=== PATIENT | male | born 1945 | race Caucasian/White ===

== ENCOUNTER → 2018-07-03 06:12 | Outpatient (CLI) | payer MEDICARE, OTHER, SELFPAY ==
--- NOTE | 2018-07-03 | DI.MRI.S_ITS ---
PROCEDURE: MR LUMBAR SPINE WO CON INDICATIONS: BACK PAIN TECHNIQUE: Noncontrast sagittal T1 spin echo and T2 fast echo, sagittal STIR, axial T1 and T2 fast spin echo through the lumbar spine. In cases with scoliosis, additional coronal T2 fast spin echo may be performed. COMPARISON: [facility], [place], XR LUMBAR SPINE FLEXION EXTENSION, 06/30/2018, 9:06. FINDINGS: Image quality: Excellent. Alignment and Curvature: There is scoliosis. Mild resistance of L2 on L3 and L3 on L4. Bone Marrow: Marrow is of normal overall signal. No acute vertebral body compression fractures. Spinal Cord: Conus medullaris terminates at the L1 level. Visualized cord demonstrates normal signal and size. Paraspinous Soft Tissues: No paravertebral masses. T12-L1: Preserved disc height. Mild disc desiccation. There is diffuse posterior disc bulge and disc osteophyte complex. There is left posterior paramedian disc extrusion measuring 5 x 9 x 9 mm. The central canal is mildly narrowed. Mild narrowing of the left lateral recess. No foraminal stenosis. L1-L2: Preserved disc height. Mild disc desiccation. There is diffuse posterior disc bulge and disc osteophyte complex. There is left posterior paramedian disc extrusion measuring 4 x 7 x 9 mm. Mild bilateral facet arthropathy and hypertrophy of ligamentum flavum. The central canal is mildly narrowed. Mild left foraminal stenosis. L2-L3: Mild loss of disc height and disc desiccation. There is diffuse posterior disc bulge and disc osteophyte complex. A small posterior central annular fissure is present. Mild bilateral facet arthropathy and hypertrophy of ligamentum flavum. The central canal is mildly narrowed. Mild bilateral foraminal stenosis. L3-L4: Moderate loss of disc height and disc desiccation. There is diffuse posterior disc bulge and disc osteophyte complex. A small posterior right paramedian annular fissure is present. Mild bilateral facet arthropathy and moderate hypertrophy of ligamentum flavum. The central canal is moderately narrowed. Moderate bilateral foraminal stenosis. L4-L5: Severe loss of disc height and disc desiccation. There is diffuse posterior disc bulge and disc osteophyte complex. Severe right and moderate left facet arthropathy. Moderate bilateral hypertrophy of ligamentum flavum. The central canal is moderately narrowed. Moderate bilateral foraminal stenosis. L5-S1: Laminectomy and posterior fusion. Preserved disc height. Moderate disc desiccation. There is diffuse posterior disc bulge and disc osteophyte complex. Moderate bilateral facet arthropathy. The central canal is patent. No foraminal stenosis. IMPRESSION: 1. Multilevel degenerative and postsurgical changes as described. 2. Multilevel central canal stenosis, moderate at L3-L4 and L4-L5. 3. Multilevel foraminal stenosis as described. Dictated by: Ravi Monterroso M.D. on 07/03/2018 at 7:58 Transcribed by: MAXIMINO on 07/03/2018 at 19:25 Approved by: Ravi Monterroso M.D. on 07/04/2018 at 19:02
== END ==
PROVIDERS: PCP Internal Medicine; Visit Provider Orthopaedic Surgery
DX: M47.816 Spondylosis without myelopathy or radiculopathy, lumbar region (principal); M47.817 Spondylosis without myelopathy or radiculopathy, lumbosacral region; M48.061 Spinal stenosis, lumbar region without neurogenic claudication; M54.9 Dorsalgia, unspecified; Z98.1 Arthrodesis status
CPT/HCPCS: 72148

== ENCOUNTER → 2018-07-10 14:33 | Outpatient (CLI) | payer MEDICARE, OTHER, SELFPAY ==
[2018-07-10 16:15] LABS: Alanine Aminotransferase 46 IU/L (21-72); Albumin 3.8 g/dL (3.5-5.0); Albumin Globulin Ratio 1.6 (1.0-2.8); Alkaline Phosphatase 78 U/L (38-126); Aspartate Aminotransferase 34 IU/L (17-59); Bilirubin Total 0.3 mg/dL (0.2-1.3); Blood Urea Nitrogen 16 mg/dL (9-20); Calcium 9.3 mg/dL (8.4-10.2); Carbon Dioxide 28 mmol/L (22-32); Chloride 97 mmol/L (98-107); Estimated Glomerular Filt Rate > 60.0 mL/min (>60); Globulin 2.4 g/dL (1.7-4.1); Glucose 102 mg/dL (80-110); HEMOLYSIS < 15 (0-50); Potassium 3.9 mmol/L (3.4-5.1); Sodium 135 mmol/L (137-145); Total Protein 6.2 g/dL (6.3-8.2)
[2018-07-10 16:46] LABS: Prostate Specific Antigen Scrn 2.56 ng/mL (0.1-4.0)
== END ==
PROVIDERS: PCP Internal Medicine; Visit Provider Internal Medicine
DX: E78.5 Hyperlipidemia, unspecified (principal); I10 Essential (primary) hypertension; Z12.5 Encounter for screening for malignant neoplasm of prostate
CPT/HCPCS: 36415; 80053; G0103

== ENCOUNTER → 2019-06-02 15:13 | Outpatient (CLI) | payer MEDICARE, OTHER, SELFPAY | PROVIDERS: PCP Internal Medicine; Visit Provider Physician Assistant | DX: T14.8XXA Other injury of unspecified body region, initial encounter (principal) | CPT/HCPCS: 87070; 87075; 87077; 87147; 87186; 87205 ==

== ENCOUNTER → 2019-07-17 08:59 | Outpatient (CLI) | payer MEDICARE, OTHER, SELFPAY ==
[2019-07-17 09:59] LABS: Alanine Aminotransferase 19 IU/L (<50); Albumin 3.8 g/dL (3.5-5.0); Albumin Globulin Ratio 1.4 (1.0-2.8); Alkaline Phosphatase 74 U/L (38-126); Aspartate Aminotransferase 30 IU/L (17-59); Bilirubin Total 0.5 mg/dL (0.2-1.3); Blood Urea Nitrogen 28 mg/dL (9-20); Calcium 9.4 mg/dL (8.4-10.2); Carbon Dioxide 30 mmol/L (22-32); Chloride 102 mmol/L (98-107); Cholesterol 324 mg/dL (140-199); Estimated Glomerular Filt Rate > 60.0 mL/min (>60); Globulin 2.7 g/dL (1.7-4.1); Glucose 106 mg/dL (80-110); HDL Cholesterol 68 mg/dL (40-60); HEMOLYSIS < 15 (0-50); LDL Cholesterol Calculated 245 mg/dL (<100); Potassium 3.9 mmol/L (3.4-5.1); Sodium 140 mmol/L (137-145); Total Protein 6.5 g/dL (6.3-8.2); Triglycerides 56 mg/dL (35-150)
== END ==
PROVIDERS: PCP Internal Medicine; Referring Provider Internal Medicine; Visit Provider Internal Medicine
DX: E78.5 Hyperlipidemia, unspecified (principal); I10 Essential (primary) hypertension
CPT/HCPCS: 36415; 80053; 80061

== ENCOUNTER → 2020-02-02 07:45 | Outpatient (CLI) | payer MEDICARE, OTHER, SELFPAY ==
[2020-02-02 09:12] LABS: Alanine Aminotransferase 20 IU/L (<50); Albumin 3.9 g/dL (3.5-5.0); Albumin Globulin Ratio 1.8 (1.0-2.8); Alkaline Phosphatase 69 U/L (38-126); Aspartate Aminotransferase 31 IU/L (17-59); BUN Creatinine Ratio 27.2 (6-22); Bilirubin Total 0.6 mg/dL (0.2-1.3); Blood Urea Nitrogen 25 mg/dL (9-20); Calcium 9.5 mg/dL (8.4-10.2); Carbon Dioxide 33 mmol/L (22-32); Chloride 102 mmol/L (98-107); Cholesterol 181 mg/dL (140-199); Estimated Glomerular Filt Rate > 60.0 mL/min (>60); Globulin 2.2 g/dL (1.7-4.1); Glucose 83 mg/dL (80-110); HDL Cholesterol 65 mg/dL (40-60); HEMOLYSIS < 15 (0-50); LDL Cholesterol Calculated 101 mg/dL (<100); Potassium 4.2 mmol/L (3.4-5.1); Sodium 137 mmol/L (137-145); Total Protein 6.1 g/dL (6.3-8.2); Triglycerides 73 mg/dL (35-150)
[2020-02-02 09:26] LABS: Free T4, Direct Thyroxine 1.04 ng/dL (0.78-2.19)
[2020-02-02 09:40] LABS: Thyroid Stimulating Hormone 2.74 uIU/mL (0.47-4.68)
== END ==
PROVIDERS: PCP Internal Medicine; Referring Provider Internal Medicine; Visit Provider Internal Medicine
DX: E78.5 Hyperlipidemia, unspecified (principal); G20 Parkinson's disease; I10 Essential (primary) hypertension
CPT/HCPCS: 36415; 80053; 80061; 84439; 84443

== ENCOUNTER → 2020-07-25 10:09 | Outpatient (CLI) | payer MEDICARE, OTHER, SELFPAY ==
[2020-07-25 11:38] LABS: Cholesterol 199 mg/dL (140-199); HDL Cholesterol 79 mg/dL (40-60); LDL Cholesterol Calculated 105 mg/dL (<100); Triglycerides 77 mg/dL (35-150)
== END ==
PROVIDERS: PCP Internal Medicine; Referring Provider Internal Medicine; Visit Provider Internal Medicine
DX: E78.2 Mixed hyperlipidemia (principal); I10 Essential (primary) hypertension
CPT/HCPCS: 36415; 80061

== ENCOUNTER → 2020-08-13 10:54 | Outpatient (CLI) | payer MEDICARE, OTHER, SELFPAY ==
--- NOTE | 2020-08-13 | DI.MRI.S_ITS ---
PROCEDURE: MR SHOULDER RT WO CON INDICATIONS: Unspecified disorder of synovium and tendon, right TECHNIQUE: Noncontrast oblique coronal T2 fast spin echo with fat saturation, oblique sagittal T1 spin echo and T2 fast spin echo with fat saturation, axial T1 spin echo and T2 fast spin echo with fat saturation through the shoulder. COMPARISON: [facility], MR, SHOULDER WITHOUT CONTRAST, 03/25/2017, 12:48. FINDINGS: Image quality: Excellent. Rotator cuff: Postsurgical changes from prior rotator cuff tendon repair is again seen Tendinosis and moderate grade articular and bursal surface partial thickness tear involving distal supraspinatus at its insertion on the humeral head is seen extending to musculotendinous junction with focal full-thickness perforation involving most anterior fibers of distal supraspinatus at its insertion on the humeral head and up to 1.7 cm medial retraction of torn tendon fibers and fluid-filled gap measures 1 cm in AP dimension. Distal infraspinatus tendinosis and low to moderate grade articular surface partial-thickness tear at its insertion on the humeral head is seen. Distal subscapularis tendinosis and low-grade intrasubstance partial-thickness tear is also noted. Sagittal images demonstrate mild to moderate supraspinatus muscle atrophy. Bones and bursae: Postsurgical changes are noted in anterior superior humeral head with susceptibility artifacts. No bone marrow contusions or fractures. There is moderate acromioclavicular joint osteoarthritis with prominent downward osteophyte formation depressing the musculotendinous junction of supraspinatus. Mild to moderate glenohumeral joint osteoarthritic changes also seen. Slight superior migration of humeral head in relation to glenoid is seen. There is moderate amount of joint effusion and subacromial subdeltoid bursal fluid. Capsule and soft tissues: There is signal abnormality and contour irregularity involving superior anterior labrum at 12 to 2 o'clock position suggestive of superior anterior labral tear. Glenohumeral ligaments are intact. The long head of the biceps tendinosis is seen. The rotator interval appears normal, without fibrosis. The coracohumeral ligament is normal in thickness. IMPRESSION: 1. Prior rotator cuff tendon repair. Moderate acromioclavicular joint osteoarthritis and mild to moderate glenohumeral joint osteoarthritis. Moderate amount of joint fluid and subacromial subdeltoid bursal fluid. No gross marrow edema. 2. Tendinosis and moderate grade articular and bursal surface partial thickness tear involving distal supraspinatus extending to musculotendinous junction with focal full-thickness tear involving most anterior fibers of distal supraspinatus at its insertion on the humeral head with up to 1.7 cm medial retraction of torn tendon fibers and fluid-filled gap measures 1 cm in AP dimension. Distal infraspinatus tendinosis and low to moderate grade articular surface partial-thickness tear. Tendinosis and low-grade intrasubstance partial-thickness tear involving distal subscapularis. Mild to moderate supraspinatus muscle atrophy. 3. Suggestion of superior anterior labral tear at 12 to 2 o'clock position. 4. Proximal intra-articular portion of long head of biceps tendinosis. Dictated by: Checo Lopez M.D. on 08/15/2020 at 8:35 Approved by: Checo Lopez M.D. on 08/15/2020 at 8:57
== END ==
PROVIDERS: PCP Internal Medicine; Referring Provider Orthopaedic Surgery; Visit Provider Orthopaedic Surgery
DX: M19.011 Primary osteoarthritis, right shoulder (principal); M75.111 Incomplete rotator cuff tear or rupture of right shoulder, not specified as traumatic
CPT/HCPCS: 73221

== ENCOUNTER → 2020-12-27 08:39 | Outpatient (CLI) | payer MEDICARE, OTHER, SELFPAY ==
[2020-12-27 09:27] LABS: Alanine Aminotransferase 10 IU/L (<50); Albumin 3.8 g/dL (3.5-5.0); Albumin Globulin Ratio 1.5 (1.0-2.8); Alkaline Phosphatase 63 U/L (38-126); Aspartate Aminotransferase 27 IU/L (17-59); BUN Creatinine Ratio 34.1 (6-22); Bilirubin Total 0.5 mg/dL (0.2-1.3); Blood Urea Nitrogen 30 mg/dL (9-20); Calcium 9.5 mg/dL (8.4-10.2); Carbon Dioxide 29 mmol/L (22-32); Chloride 107 mmol/L (98-107); Estimated Glomerular Filt Rate > 60.0 mL/min (>60); Globulin 2.5 g/dL (1.7-4.1); Glucose 103 mg/dL (80-110); HEMOLYSIS < 15 (0-50); Potassium 3.6 mmol/L (3.4-5.1); Sodium 141 mmol/L (137-145); Total Protein 6.3 g/dL (6.3-8.2)
== END ==
PROVIDERS: PCP Internal Medicine; Referring Provider Internal Medicine; Visit Provider Internal Medicine
DX: E78.2 Mixed hyperlipidemia (principal); I10 Essential (primary) hypertension
CPT/HCPCS: 36415; 80053

== ENCOUNTER → 2021-08-07 10:22 | Outpatient (CLI) | payer MEDICARE, OTHER, SELFPAY ==
[2021-08-07 12:25] LABS: Alanine Aminotransferase 14 IU/L (<50); Albumin 4.3 g/dL (3.5-5.0); Albumin Globulin Ratio 1.8 (1.0-2.8); Alkaline Phosphatase 62 U/L (38-126); Aspartate Aminotransferase 29 IU/L (17-59); BUN Creatinine Ratio 24.7 (6-22); Bilirubin Total 0.6 mg/dL (0.2-1.3); Blood Urea Nitrogen 22 mg/dL (9-20); Calcium 9.2 mg/dL (8.4-10.2); Carbon Dioxide 31 mmol/L (22-32); Chloride 103 mmol/L (98-107); Cholesterol 191 mg/dL (140-199); Estimated Glomerular Filt Rate > 60.0 mL/min (>60); Globulin 2.4 g/dL (1.7-4.1); Glucose 92 mg/dL (80-110); HDL Cholesterol 67 mg/dL (40-60); HEMOLYSIS < 15 (0-50); LDL Cholesterol Calculated 110 mg/dL (<100); Potassium 3.4 mmol/L (3.4-5.1); Sodium 141 mmol/L (137-145); Total Protein 6.7 g/dL (6.3-8.2); Triglycerides 72 mg/dL (35-150)
== END ==
PROVIDERS: PCP Internal Medicine; Referring Provider Internal Medicine; Visit Provider Internal Medicine
DX: E78.2 Mixed hyperlipidemia (principal); I10 Essential (primary) hypertension
CPT/HCPCS: 36415; 80053; 80061

== ENCOUNTER 2021-09-28 13:00 | Outpatient (RCR) | payer MEDICARE, OTHER, SELFPAY ==
--- NOTE | 2021-09-07 09:39 | PT.OIE ---
Current Diagnoses Parkinson's disease (09/07/21) Past Medical History (Last Reviewed 01/12/21 @ 08:21 by JIM Harris) Erectile dysfunction (11/11/12) History of renal calculi (04/10/11) Hyperlipidemia Hypertension Parkinsonism Past Surgical History (Last Reviewed 01/12/21 @ 08:21 by JIM Harris) Status post rotator cuff repair (04/26/17) Visit Care Team Role Provider Type Kike Washburn MD Family Provider Physician Primary Care Provider Specialty: Internal Medicine Address: [address] [place] [address], [address], [address] Email: [email or web address] Gissel Dominguez MD Attending Provider Non-Staff Referring Provider Specialty: Neurology Address: [address] [place] [address], [id number] Email: Physical Therapy Initial Evaluation PT-OP-A Visit Information Start: 09/06/21 16:03 Freq: Status: Active Protocol: Document 09/07/21 07:30 AMB (Rec: 09/07/21 07:52 AMB [id number]) Out-Patient Physical Therapy Visit Information Visit Information Visit Type Initial Evaluation Visit Start Time 07:30 Visit Stop Time 08:15 Total Visit Minutes 45 Visit Number 1 PT-OP-B Current Condition Start: 09/06/21 16:03 Freq: Status: Active Protocol: Document 09/07/21 07:30 AMB (Rec: 09/07/21 07:52 AMB [id number]) Current Condition History of Current Condition Onset Date 3-4 years ago Current Complaints Parkinsons History of Current Condition Used to walk around [facility] and [place], but currently feels like he can only walk 100 yards before legs get heavy. Feels stutter stepping does catch himself on the wall, but does report having a couple falls a month. Feels like falling forward when going to sit down in a chair. Has noticed changes with his handwriting. Rolling over in bed is challenging and painful in the low back. Has been using heat and ice. Taking a backwards step can be challenging. Lives in a two story home with his , doesn't use lower level. 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 Prior Treatments and Tests History of spine fusion- L45 Treatment Goals Patient/Caregiver Goals Balance, less pain with bed mobility Prior Functional Status Baseline Function- ADL's Independent Baseline Function- Mobility Independent Current Functional Impairments (Reported) Functional Limitations- ADL's Limited bed mobility (pain), handwriting, buttoning, donning/doffing shoes Functional Limitations- Mobility/Gait Limited long distance walking, falls in the home, furniture walks, Personal Factors Other Personal Factors That May Effect R eye reduced vision, reports Therapy/Recovery reduced depth perception, history of lumbar fusion PT-OP-D Balance Start: 09/06/21 16:03 Freq: Status: Active Protocol: Document 09/07/21 07:30 AMB (Rec: 09/08/21 09:39 AMB [id number]) Balance Tests Other Other Balance Tests Performed NBOS: good NBOS eyes closed: good PT-OP-E Functional Tests Start: 09/06/21 16:03 Freq: Status: Active Protocol: Document 09/07/21 07:30 AMB (Rec: 09/08/21 08:56 AMB [id number]) Functional Tests Five Times Sit to Stand Test Score 7 Comments poor eccentric control PT-OP-G Mobility & Gait Start: 09/06/21 16:03 Freq: Status: Active Protocol: Document 09/07/21 07:30 AMB (Rec: 09/08/21 08:56 AMB [id number]) OP Mobility Evaluation Bed Mobility Rolling cued punching- pt is able to roll independently, but with difficulty Supine to and from Sit requires UE support OP Gait Assessment Comments Gait Comments Once Bhavesh starts walking he can walk with good step length , needs cues for arm swing and heel/toe, but is able to change gait with cues. Tends to have festinating gait pattern when getting close to chair/bed, changing direction, was able to step over hurdles without festination when concentrating. Stair Climbing Evaluation Devices Stair Climbing Assistive Devices Left Railing,Right Railing Technique/Endurance Stair Climbing Direction Ascend and Descend Stair Climbing Technique Step Over Step Number of Steps Climbed 4 Stair Climbing Set # Repetitions (reps) 2 PT-OP-M Strength Start: 09/06/21 16:03 Freq: Status: Active Protocol: Document 09/07/21 07:30 AMB (Rec: 09/08/21 08:56 AMB [id number]) Hip Strength Hip Manual Muscle Testing Right Flexion (L2) 4 Good Extension (S1) 4 Good Abduction 4 Good Left Flexion (L2) 4 Good Extension (S1) 4 Good Abduction 4 Good Knee Strength Knee Manual Muscle Testing Right Flexion (S2) 5 Normal Extension (L3) 5 Normal Left Flexion (S2) 5 Normal Extension (L3) 5 Normal Ankle/Foot Strength Ankle and Foot Manual Muscle Testing Right Dorsiflexion (L4) 4 Good Left Dorsiflexion (L4) 4 Good PT-OP-T Assessment and Plan Start: 09/06/21 16:03 Freq: Status: Active Protocol: Document 09/07/21 07:30 AMB (Rec: 09/08/21 09:38 AMB [id number]) Physical Therapy Assessment Rehab Potential Rehabilitation Potential Good Evaluation Complexity Number of Personal Factors/Comorbidities 1-2 Number of Body Systems Impaired 4 or More Clinical Presentation at Evaluation Stable Impairments Impairments Balance,Functional Mobility, Gait,Pain,ROM,Strength Goals Three Impairment HEP Short Term Goal (STG) Bhavesh will be independent with a HEP to promote balance/gait/ reduce back pain. STG Duration 4 weeks Two Impairment Bed mobility Short Term Goal (STG) Bhavesh will roll over in bed without back pain. STG Duration 4 weeks One Impairment Gait Short Term Goal (STG) Bhavesh will walk for 6 minutes over smooth terrain while maintaining good step length and arm swing. STG Duration 4 weeks Target Trimmer Goal (LTG) Bhavesh will ambulate without AD over uneven terrain (grass/ gravel) without LOB. LTG Duration 8 weeks Assessment Summary Assessment Bhavesh attends physical therapy with PD and a history of back pain. He reports a significant fall history, but does not use an AD. During evaluation his MMT was WNL ( checked due to lumbar pathology history and feeling of leaden legs), but he did have festinating gait especially with transfers, common with PD once he got moving his gait was improved, but he did need cues for good amplitude, avoiding a shuffling gait and armswing. He would benefit from PT to improve his gait, fine motor activity, and transfer safety, as well as to decrease back pain with bed mobility. Physical Therapy Plan Frequency and Duration Frequency of Treatment 2x/Week Duration of Treatment 8 weeks Plan of Care Start Date 09/07/21 Plan of Care End Date 11/02/21 Therapeutic Interventions Therapeutic Interventions Balance Training,Gait Training ,Home Exercise Program,Joint Mobilizations,Manual Therapy, Neuromuscular Re-education, Patient/Caregiver Education, Self-Care/Home Management, Therapeutic Activities, Therapeutic Exercises Next Visit Focus/Plan Next Note Type Treatment Note Next Visit Plan HEP for low back ROM in bed to help with pain with bed mobility, then progress gait working olena on transitions-- walking up to chair and then stand to sit. . . walking around objects, turning while maintaining good amplitude of gait.
--- NOTE | 2021-09-07 09:40 | PT.OPPOC ---
Physical, Occupational & Speech Therapy At [facility] Current Diagnoses Parkinson's disease (09/07/21) Visit Care Team Role Provider Type Kike Washburn MD Family Provider Physician Primary Care Provider Specialty: Internal Medicine Address: [address] [place] [address], [address], [address] Email: [email or web address] Gissel Dominguez MD Attending Provider Non-Staff Referring Provider Specialty: Neurology Address: [address] [place], [address] Email: Plan Of Care PT-OP-T Assessment and Plan Start: 09/06/21 16:03 Freq: Status: Active Protocol: Document 09/07/21 07:30 AMB (Rec: 09/08/21 09:38 AMB [id number]) Physical Therapy Assessment Rehab Potential Rehabilitation Potential Good Evaluation Complexity Number of Personal Factors/Comorbidities 1-2 Number of Body Systems Impaired 4 or More Clinical Presentation at Evaluation Stable Impairments Impairments Balance,Functional Mobility, Gait,Pain,ROM,Strength Goals Three Impairment HEP Short Term Goal (STG) Bhavesh will be independent with a HEP to promote balance/gait/ reduce back pain. STG Duration 4 weeks Two Impairment Bed mobility Short Term Goal (STG) Bhavesh will roll over in bed without back pain. STG Duration 4 weeks One Impairment Gait Short Term Goal (STG) Bhavesh will walk for 6 minutes over smooth terrain while maintaining good step length and arm swing. STG Duration 4 weeks Jail Goal (LTG) Bhavesh will ambulate without AD over uneven terrain (grass/ gravel) without LOB. LTG Duration 8 weeks Assessment Summary Assessment Bhavesh attends physical therapy with PD and a history of back pain. He reports a significant fall history, but does not use an AD. During evaluation his MMT was WNL ( checked due to lumbar pathology history and feeling of leaden legs), but he did have festinating gait especially with transfers, common with PD once he got moving his gait was improved, but he did need cues for good amplitude, avoiding a shuffling gait and armswing. He would benefit from PT to improve his gait, fine motor activity, and transfer safety, as well as to decrease back pain with bed mobility. Physical Therapy Plan Frequency and Duration Frequency of Treatment 2x/Week Duration of Treatment 8 weeks Plan of Care Start Date 09/07/21 Plan of Care End Date 11/02/21 Therapeutic Interventions Therapeutic Interventions Balance Training,Gait Training ,Home Exercise Program,Joint Mobilizations,Manual Therapy, Neuromuscular Re-education, Patient/Caregiver Education, Self-Care/Home Management, Therapeutic Activities, Therapeutic Exercises Next Visit Focus/Plan Next Note Type Treatment Note Next Visit Plan HEP for low back ROM in bed to help with pain with bed mobility, then progress gait working olena on transitions-- walking up to chair and then stand to sit. . . walking around objects, turning while maintaining good amplitude of gait. Plan of Care Dates Plan of Care Start Date 09/07/21 Plan of Care End Date 11/02/21 Electronically Signed by: Bianca Rose, PT 09/08/21 0990 Please Sign and Return: I have reviewed this Plan of Care and certify that the skilled therapy services above are required to meet the patient?s needs. Physician Signature Date Printed Name and Credentials Clinical Instructor Signature Printed Name and Credentials
--- NOTE | 2021-09-13 18:01 | PT.OTN ---
Current Diagnoses Parkinson's disease (09/13/21) Physical Therapy Treatment Note PT-OP-A Visit Information Start: 09/06/21 16:03 Freq: Status: Active Protocol: Document 09/13/21 13:42 MA (Rec: 09/13/21 14:32 MA [id number]) Out-Patient Physical Therapy Visit Information Visit Information Visit Type Treatment Note Visit Start Time 13:45 Visit Stop Time 14:30 Total Visit Minutes 45 Visit Number 2 Number of BODY DIE MAKER Visits 1 PT-OP-B Current Condition Start: 09/06/21 16:03 Freq: Status: Active Protocol: Document 09/07/21 07:30 AMB (Rec: 09/07/21 07:52 AMB [id number]) Current Condition History of Current Condition Onset Date 3-4 years ago Current Complaints Parkinsons History of Current Condition Used to walk around [employer] and [place], but currently feels like he can only walk 100 yards before legs get heavy. Feels stutter stepping does catch himself on the wall, but does report having a couple falls a month. Feels like falling forward when going to sit down in a chair. Has noticed changes with his handwriting. Rolling over in bed is challenging and painful in the low back. Has been using heat and ice. Taking a backwards step can be challenging. Lives in a two story home with his , doesn't use lower level. 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 Prior Treatments and Tests History of spine fusion- L45 Treatment Goals Patient/Caregiver Goals Balance, less pain with bed mobility Prior Functional Status Baseline Function- ADL's Independent Baseline Function- Mobility Independent Current Functional Impairments (Reported) Functional Limitations- ADL's Limited bed mobility (pain), handwriting, buttoning, donning/doffing shoes Functional Limitations- Mobility/Gait Limited long distance walking, falls in the home, furniture walks, Personal Factors Other Personal Factors That May Effect R eye reduced vision, reports Therapy/Recovery reduced depth perception, history of lumbar fusion PT-OP-C Subjective Start: 09/06/21 16:03 Freq: Status: Active Protocol: Document 09/13/21 13:42 MA (Rec: 09/13/21 14:32 MA [id number]) OP-PT Subjective Patient Comments Patient Comments Pt had chiropractic appt this morning so his back is a little looser today. PT-OP-D Balance Start: 09/06/21 16:03 Freq: Status: Active Protocol: Document 09/07/21 07:30 AMB (Rec: 09/08/21 09:39 AMB [id number]) Balance Tests Other Other Balance Tests Performed NBOS: good NBOS eyes closed: good PT-OP-E Functional Tests Start: 09/06/21 16:03 Freq: Status: Active Protocol: Document 09/07/21 07:30 AMB (Rec: 09/08/21 08:56 AMB [id number]) Functional Tests Five Times Sit to Stand Test Score 7 Comments poor eccentric control PT-OP-G Mobility & Gait Start: 09/06/21 16:03 Freq: Status: Active Protocol: Document 09/07/21 07:30 AMB (Rec: 09/08/21 08:56 AMB [id number]) OP Mobility Evaluation Bed Mobility Rolling cued punching- pt is able to roll independently, but with difficulty Supine to and from Sit requires UE support OP Gait Assessment Comments Gait Comments Once Bhavesh starts walking he can walk with good step length , needs cues for arm swing and heel/toe, but is able to change gait with cues. Tends to have festinating gait pattern when getting close to chair/bed, changing direction, was able to step over hurdles without festination when concentrating. Stair Climbing Evaluation Devices Stair Climbing Assistive Devices Left Railing,Right Railing Technique/Endurance Stair Climbing Direction Ascend and Descend Stair Climbing Technique Step Over Step Number of Steps Climbed 4 Stair Climbing Set # Repetitions (reps) 2 PT-OP-M Strength Start: 09/06/21 16:03 Freq: Status: Active Protocol: Document 09/07/21 07:30 AMB (Rec: 09/08/21 08:56 AMB [id number]) Hip Strength Hip Manual Muscle Testing Right Flexion (L2) 4 Good Extension (S1) 4 Good Abduction 4 Good Left Flexion (L2) 4 Good Extension (S1) 4 Good Abduction 4 Good Knee Strength Knee Manual Muscle Testing Right Flexion (S2) 5 Normal Extension (L3) 5 Normal Left Flexion (S2) 5 Normal Extension (L3) 5 Normal Ankle/Foot Strength Ankle and Foot Manual Muscle Testing Right Dorsiflexion (L4) 4 Good Left Dorsiflexion (L4) 4 Good PT-OP-Q Treatments Start: 09/06/21 16:03 Freq: Status: Active Protocol: Document 09/13/21 13:42 MA (Rec: 09/13/21 14:32 MA [id number]) Therapeutic Exercises Supine Exercises PPT Supine Exercise Name posterior pelvic tilt Side bilateral Reps/Minutes 10x5 SH Comments added to HEP LTR Side bilateral Reps/Minutes [id number] Comments Added to HEP -pain free range Sidelying Exercises Open Book Side bilateral Reps/Minutes 6x10 SH Comments added to HEP for improving posture Standing Exercises Marches Equipment Used rail for balance Reps/Minutes 2x20 Comments added to HEP Therapeutic Activity Therapeutic Activity Transitions Comments Transitioning between 2 chairs placed at 90 degree angle. Pt has no trouble with this today but occassionally has difficulty controlling descent into chair. Gait Training Gait Activity Walking Level of Assistance CGA Surface smooth Distance/Duration 3x100 ft Treatment Focus Big arm swings, increasing step height and length Comments Frequent cues for posture Self-Care/Home Management Treatment Education Other Education Added to HEP: PPT, LTR, open book, standing marches PT-OP-T Assessment and Plan Start: 09/06/21 16:03 Freq: Status: Active Protocol: Document 09/13/21 13:42 MA (Rec: 09/13/21 14:32 MA [id number]) Physical Therapy Assessment Goals Three Impairment HEP Short Term Goal (STG) Bhavesh will be independent with a HEP to promote balance/gait/ reduce back pain. STG Duration 4 weeks Two Impairment Bed mobility Short Term Goal (STG) Bhavesh will roll over in bed without back pain. STG Duration 4 weeks One Impairment Gait Short Term Goal (STG) Bhavesh will walk for 6 minutes over smooth terrain while maintaining good step length and arm swing. STG Duration 4 weeks [facility] Goal (LTG) Bhavesh will ambulate without AD over uneven terrain (grass/ gravel) without LOB. LTG Duration 8 weeks Assessment Summary Assessment Started pt with gentle supine stretches for lumbar and thoracic spine before practicing rolling for bed mobility. Pt usually has increased back pain trying to get up out of bed in the morning but had no pain rolling to SL and sitting up this session. Bhavesh walks with decreased arm swings, step height, step length, and a NBOS. Worked on increasing step height and arm swings this session. Added to HEP- standing marches, supine pelvic tilt, lower trunk rotation, and open book exercise. Pt feels a stronger pec stretch R>L during open book exercise. Physical Therapy Plan Frequency and Duration Frequency of Treatment 2x/Week Duration of Treatment 8 weeks Plan of Care Start Date 09/07/21 Plan of Care End Date 11/02/21 Therapeutic Interventions Therapeutic Interventions Balance Training,Gait Training ,Home Exercise Program,Joint Mobilizations,Manual Therapy, Neuromuscular Re-education, Patient/Caregiver Education, Self-Care/Home Management, Therapeutic Activities, Therapeutic Exercises Next Visit Focus/Plan Next Note Type Treatment Note Next Visit Plan review HEP (PPT, LTR, open book, standing marches) and assess bed mobility since starting HEP. Continue progressing gait and transitions-- walking up to chair and then stand to sit. . . walking around objects, turning while maintaining good amplitude of gait.
--- NOTE | 2021-09-15 13:50 | PT.OTN ---
Current Diagnoses Parkinson's disease (09/15/21) Physical Therapy Treatment Note PT-OP-A Visit Information Start: 09/06/21 16:03 Freq: Status: Active Protocol: Document 09/15/21 08:23 AMB (Rec: 09/15/21 09:01 AMB [id number]) Out-Patient Physical Therapy Visit Information Visit Information Visit Type Treatment Note Visit Start Time 08:15 Visit Stop Time 09:00 Total Visit Minutes 45 Visit Number 3 PT-OP-B Current Condition Start: 09/06/21 16:03 Freq: Status: Active Protocol: Document 09/07/21 07:30 AMB (Rec: 09/07/21 07:52 AMB [id number]) Current Condition History of Current Condition Onset Date 3-4 years ago Current Complaints Parkinsons History of Current Condition Used to walk around [employer] and [employer], but currently feels like he can only walk 100 yards before legs get heavy. Feels stutter stepping does catch himself on the wall, but does report having a couple falls a month. Feels like falling forward when going to sit down in a chair. Has noticed changes with his handwriting. Rolling over in bed is challenging and painful in the low back. Has been using heat and ice. Taking a backwards step can be challenging. Lives in a two story home with his , doesn't use lower level. 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 Prior Treatments and Tests History of spine fusion- L45 Treatment Goals Patient/Caregiver Goals Balance, less pain with bed mobility Prior Functional Status Baseline Function- ADL's Independent Baseline Function- Mobility Independent Current Functional Impairments (Reported) Functional Limitations- ADL's Limited bed mobility (pain), handwriting, buttoning, donning/doffing shoes Functional Limitations- Mobility/Gait Limited long distance walking, falls in the home, furniture walks, Personal Factors Other Personal Factors That May Effect R eye reduced vision, reports Therapy/Recovery reduced depth perception, history of lumbar fusion PT-OP-C Subjective Start: 09/06/21 16:03 Freq: Status: Active Protocol: Document 09/15/21 13:36 AMB (Rec: 09/15/21 13:48 AMB [id number]) OP-PT Subjective Patient Comments Patient Comments Bhavesh reports he did is exercises this morning after getting up, felt ok after being up for a while. Interested in returning to walking with his , but agrees only flat surfaces for right now. PT-OP-D Balance Start: 09/06/21 16:03 Freq: Status: Active Protocol: Document 09/07/21 07:30 AMB (Rec: 09/08/21 09:39 AMB [id number]) Balance Tests Other Other Balance Tests Performed NBOS: good NBOS eyes closed: good PT-OP-E Functional Tests Start: 09/06/21 16:03 Freq: Status: Active Protocol: Document 09/07/21 07:30 AMB (Rec: 09/08/21 08:56 AMB [id number]) Functional Tests Five Times Sit to Stand Test Score 7 Comments poor eccentric control PT-OP-G Mobility & Gait Start: 09/06/21 16:03 Freq: Status: Active Protocol: Document 09/07/21 07:30 AMB (Rec: 09/08/21 08:56 AMB [id number]) OP Mobility Evaluation Bed Mobility Rolling cued punching- pt is able to roll independently, but with difficulty Supine to and from Sit requires UE support OP Gait Assessment Comments Gait Comments Once Bhavesh starts walking he can walk with good step length , needs cues for arm swing and heel/toe, but is able to change gait with cues. Tends to have festinating gait pattern when getting close to chair/bed, changing direction, was able to step over hurdles without festination when concentrating. Stair Climbing Evaluation Devices Stair Climbing Assistive Devices Left Railing,Right Railing Technique/Endurance Stair Climbing Direction Ascend and Descend Stair Climbing Technique Step Over Step Number of Steps Climbed 4 Stair Climbing Set # Repetitions (reps) 2 PT-OP-M Strength Start: 09/06/21 16:03 Freq: Status: Active Protocol: Document 09/07/21 07:30 AMB (Rec: 09/08/21 08:56 AMB [id number]) Hip Strength Hip Manual Muscle Testing Right Flexion (L2) 4 Good Extension (S1) 4 Good Abduction 4 Good Left Flexion (L2) 4 Good Extension (S1) 4 Good Abduction 4 Good Knee Strength Knee Manual Muscle Testing Right Flexion (S2) 5 Normal Extension (L3) 5 Normal Left Flexion (S2) 5 Normal Extension (L3) 5 Normal Ankle/Foot Strength Ankle and Foot Manual Muscle Testing Right Dorsiflexion (L4) 4 Good Left Dorsiflexion (L4) 4 Good PT-OP-Q Treatments Start: 09/06/21 16:03 Freq: Status: Active Protocol: Document 09/15/21 13:36 AMB (Rec: 09/15/21 13:48 AMB [id number]) Therapeutic Exercises Supine Exercises LTR Side bilateral Reps/Minutes [id number] Comments Reviewed HEP Standing Exercises sit to abigail Reps/Minutes 10 Comments cued control of descent Marches Equipment Used rail for balance Reps/Minutes 2x20 Comments Reviewed HEP Gait Training Gait Activity hurdles Level of Assistance CGA Comments difficult with vision impairment, but cued for lifting feet Walking Description smooth Device Used none Level of Assistance SBA Distance/Duration 200' Comments cued heel strike/toe push off, trunk rotation/arm swing Neuro Re-Education Treatment Balance Activities foam Comments static balance eyes open good- eyes closed increased sway but able to maintain Other Activities rock and reach Reps/Duration 10 ea side Comments cued big arm swing PT-OP-T Assessment and Plan Start: 09/06/21 16:03 Freq: Status: Active Protocol: Document 09/15/21 08:23 AMB (Rec: 09/15/21 09:01 AMB [id number]) Physical Therapy Assessment Goals Three Impairment HEP Short Term Goal (STG) Bhavesh will be independent with a HEP to promote balance/gait/ reduce back pain. STG Duration 4 weeks Two Impairment Bed mobility Short Term Goal (STG) Bhavesh will roll over in bed without back pain. STG Duration 4 weeks One Impairment Gait Short Term Goal (STG) Bhavesh will walk for 6 minutes over smooth terrain while maintaining good step length and arm swing. STG Duration 4 weeks [employer] Goal (LTG) Bhavesh will ambulate without AD over uneven terrain (grass/ gravel) without LOB. LTG Duration 8 weeks Assessment Summary Assessment Provided education today on safe return to community ambulation for exercise, not to push duration yet, but get in the habit of going on walks with where there are benches. Bhavesh's vision was a limiting factor with stepping over hurdles, so cued good step length and avoiding shuffling gait pattern. Bhavesh had a more difficult time with dual tasking- slowed gait with cognitive task. Physical Therapy Plan Next Visit Focus/Plan Next Note Type Treatment Note Next Visit Plan review HEP (PPT, LTR, open book, standing marches, rock and reach) and assess bed mobility since starting HEP. Continue progressing gait and transitions-- walking up to chair and then stand to sit. . . walking around objects, turning while maintaining good amplitude of gait.
--- NOTE | 2021-09-18 12:57 | PT.OTN ---
Current Diagnoses Parkinson's disease (09/18/21) Physical Therapy Treatment Note PT-OP-A Visit Information Start: 09/06/21 16:03 Freq: Status: Active Protocol: Document 09/18/21 11:58 MA (Rec: 09/18/21 12:57 MA [id number]) Out-Patient Physical Therapy Visit Information Visit Information Visit Type Treatment Note Visit Start Time 12:00 Visit Stop Time 12:45 Total Visit Minutes 45 Visit Number 4 Number of FINE GRADER Visits 1 PT-OP-B Current Condition Start: 09/06/21 16:03 Freq: Status: Active Protocol: Document 09/07/21 07:30 AMB (Rec: 09/07/21 07:52 AMB [id number]) Current Condition History of Current Condition Onset Date 3-4 years ago Current Complaints Parkinsons History of Current Condition Used to walk around [employer] and [place], but currently feels like he can only walk 100 yards before legs get heavy. Feels stutter stepping does catch himself on the wall, but does report having a couple falls a month. Feels like falling forward when going to sit down in a chair. Has noticed changes with his handwriting. Rolling over in bed is challenging and painful in the low back. Has been using heat and ice. Taking a backwards step can be challenging. Lives in a two story home with his , doesn't use lower level. Currently working parts analyst as a contracts administrator, but thinking of fully retiring. Prior Treatments and Tests History of spine fusion- L45 Treatment Goals Patient/Caregiver Goals Balance, less pain with bed mobility Prior Functional Status Baseline Function- ADL's Independent Baseline Function- Mobility Independent Current Functional Impairments (Reported) Functional Limitations- ADL's Limited bed mobility (pain), handwriting, buttoning, donning/doffing shoes Functional Limitations- Mobility/Gait Limited long distance walking, falls in the home, furniture walks, Personal Factors Other Personal Factors That May Effect R eye reduced vision, reports Therapy/Recovery reduced depth perception, history of lumbar fusion PT-OP-C Subjective Start: 09/06/21 16:03 Freq: Status: Active Protocol: Document 09/18/21 11:58 MA (Rec: 09/18/21 12:57 MA [id number]) OP-PT Subjective Patient Comments Patient Comments Pt feels his back is already feeling better with his exercises. He would like to drop down to 1x/wk so he has more time between appointments to work on his HEP and see how his back feels. PT-OP-D Balance Start: 09/06/21 16:03 Freq: Status: Active Protocol: Document 09/07/21 07:30 AMB (Rec: 09/08/21 09:39 AMB [id number]) Balance Tests Other Other Balance Tests Performed NBOS: good NBOS eyes closed: good PT-OP-E Functional Tests Start: 09/06/21 16:03 Freq: Status: Active Protocol: Document 09/07/21 07:30 AMB (Rec: 09/08/21 08:56 AMB [id number]) Functional Tests Five Times Sit to Stand Test Score 7 Comments poor eccentric control PT-OP-G Mobility & Gait Start: 09/06/21 16:03 Freq: Status: Active Protocol: Document 09/07/21 07:30 AMB (Rec: 09/08/21 08:56 AMB [id number]) OP Mobility Evaluation Bed Mobility Rolling cued punching- pt is able to roll independently, but with difficulty Supine to and from Sit requires UE support OP Gait Assessment Comments Gait Comments Once Bhavesh starts walking he can walk with good step length , needs cues for arm swing and heel/toe, but is able to change gait with cues. Tends to have festinating gait pattern when getting close to chair/bed, changing direction, was able to step over hurdles without festination when concentrating. Stair Climbing Evaluation Devices Stair Climbing Assistive Devices Left Railing,Right Railing Technique/Endurance Stair Climbing Direction Ascend and Descend Stair Climbing Technique Step Over Step Number of Steps Climbed 4 Stair Climbing Set # Repetitions (reps) 2 PT-OP-M Strength Start: 09/06/21 16:03 Freq: Status: Active Protocol: Document 09/07/21 07:30 AMB (Rec: 09/08/21 08:56 AMB [id number]) Hip Strength Hip Manual Muscle Testing Right Flexion (L2) 4 Good Extension (S1) 4 Good Abduction 4 Good Left Flexion (L2) 4 Good Extension (S1) 4 Good Abduction 4 Good Knee Strength Knee Manual Muscle Testing Right Flexion (S2) 5 Normal Extension (L3) 5 Normal Left Flexion (S2) 5 Normal Extension (L3) 5 Normal Ankle/Foot Strength Ankle and Foot Manual Muscle Testing Right Dorsiflexion (L4) 4 Good Left Dorsiflexion (L4) 4 Good PT-OP-Q Treatments Start: 09/06/21 16:03 Freq: Status: Active Protocol: Document 09/18/21 11:58 MA (Rec: 09/18/21 12:57 MA [id number]) Therapeutic Exercises Supine Exercises PPT Supine Exercise Name posterior pelvic tilt Side bilateral Reps/Minutes 10x5 SH Comments added to HEP LTR Side bilateral Reps/Minutes [id number] Comments Reviewed HEP Standing Exercises Heel Raises Side bilateral Reps/Minutes x10 Comments w/ rail sit to abigail Reps/Minutes 10 Comments cued control of descent Marches Equipment Used rail for balance Reps/Minutes 2x20 Comments Reviewed HEP Therapeutic Activity Therapeutic Activity Transitions Comments Transitioning between 2 chairs 180 degrees. Gait Training Gait Activity Stairs Device Used single rail Distance/Duration 2x4 6 steps Treatment Focus assessing stairs Comments 1x with rail, 1x without rail- min A Outdoors Description walking outside Level of Assistance CGA-Mod A Surface uneven Treatment Focus curbs, grass, gravel Walking Description smooth Device Used none Level of Assistance SBA Distance/Duration 200' Comments cued heel strike/toe push off, trunk rotation/arm swing Neuro Re-Education Treatment Balance Activities Patience Disc Details modified SLS- one foot on disc , one on floor Surface blue patience disc Reps/Duration x1' ea Comments EO/EC Other Activities rock and reach Reps/Duration 20 ea side Comments cued big arm swing Self-Care/Home Management Treatment Education Other Education Discussed keeping 2x/wk to work more on proper form durign exercises and gait before droppig to 1x/wk if pt wants. Pt is agreeable to continuing with 2x/wk. PT-OP-T Assessment and Plan Start: 09/06/21 16:03 Freq: Status: Active Protocol: Document 09/18/21 11:58 MA (Rec: 09/18/21 12:57 MA [id number]) Physical Therapy Assessment Goals Three Impairment HEP Short Term Goal (STG) Bhavesh will be independent with a HEP to promote balance/gait/ reduce back pain. STG Duration 4 weeks Two Impairment Bed mobility Short Term Goal (STG) Bhavesh will roll over in bed without back pain. STG Duration 4 weeks One Impairment Gait Short Term Goal (STG) Bhavesh will walk for 6 minutes over smooth terrain while maintaining good step length and arm swing. STG Duration 4 weeks Halfway Goal (LTG) Bhavesh will ambulate without AD over uneven terrain (grass/ gravel) without LOB. LTG Duration 8 weeks Assessment Summary Assessment Pt did well with ambulation inside on even ground but was challenged by outdoor walking, especially on grassy hill. Pt required max A 1x today for festinating gait when initiating movement which caused pt to lose balance. He is challenged by balance exercises with eyes closed. Bhavesh had no back pain during session and feels that using momentum during bed mobility has helped a lot with pain when getting out of bed. Physical Therapy Plan Frequency and Duration Frequency of Treatment 2x/Week Duration of Treatment 8 weeks Plan of Care Start Date 09/07/21 Plan of Care End Date 11/02/21 Therapeutic Interventions Therapeutic Interventions Balance Training,Gait Training ,Home Exercise Program,Joint Mobilizations,Manual Therapy, Neuromuscular Re-education, Patient/Caregiver Education, Self-Care/Home Management, Therapeutic Activities, Therapeutic Exercises Next Visit Focus/Plan Next Note Type Treatment Note Next Visit Plan review HEP (PPT, LTR, open book, standing marches, rock and reach). Continue progressing gait and transitions-- walking up to chair and then stand to sit. . . walking around objects, turning while maintaining good amplitude of gait.
--- NOTE | 2021-09-21 15:56 | PT.OTN ---
Current Diagnoses Parkinson's disease (09/21/21) Physical Therapy Treatment Note PT-OP-A Visit Information Start: 09/06/21 16:03 Freq: Status: Active Protocol: Document 09/21/21 12:58 AMB (Rec: 09/21/21 13:46 AMB [id number]) Out-Patient Physical Therapy Visit Information Visit Information Visit Type Treatment Note Visit Start Time 13:00 Visit Stop Time 13:45 Total Visit Minutes 45 Visit Number 5 PT-OP-B Current Condition Start: 09/06/21 16:03 Freq: Status: Active Protocol: Document 09/07/21 07:30 AMB (Rec: 09/07/21 07:52 AMB [id number]) Current Condition History of Current Condition Onset Date 3-4 years ago Current Complaints Parkinsons History of Current Condition Used to walk around [employer] and [employer], but currently feels like he can only walk 100 yards before legs get heavy. Feels stutter stepping does catch himself on the wall, but does report having a couple falls a month. Feels like falling forward when going to sit down in a chair. Has noticed changes with his handwriting. Rolling over in bed is challenging and painful in the low back. Has been using heat and ice. Taking a backwards step can be challenging. Lives in a two story home with his , doesn't use lower level. 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 Prior Treatments and Tests History of spine fusion- L45 Treatment Goals Patient/Caregiver Goals Balance, less pain with bed mobility Prior Functional Status Baseline Function- ADL's Independent Baseline Function- Mobility Independent Current Functional Impairments (Reported) Functional Limitations- ADL's Limited bed mobility (pain), handwriting, buttoning, donning/doffing shoes Functional Limitations- Mobility/Gait Limited long distance walking, falls in the home, furniture walks, Personal Factors Other Personal Factors That May Effect R eye reduced vision, reports Therapy/Recovery reduced depth perception, history of lumbar fusion PT-OP-C Subjective Start: 09/06/21 16:03 Freq: Status: Active Protocol: Document 09/21/21 12:58 AMB (Rec: 09/21/21 13:46 AMB [id number]) OP-PT Subjective Patient Comments Patient Comments Pt is noticing his left knee today. NOticing that he tends to have stutter steps getting into his office chair when going around the corner into his office. PT-OP-D Balance Start: 09/06/21 16:03 Freq: Status: Active Protocol: Document 09/07/21 07:30 AMB (Rec: 09/08/21 09:39 AMB [id number]) Balance Tests Other Other Balance Tests Performed NBOS: good NBOS eyes closed: good PT-OP-E Functional Tests Start: 09/06/21 16:03 Freq: Status: Active Protocol: Document 09/07/21 07:30 AMB (Rec: 09/08/21 08:56 AMB [id number]) Functional Tests Five Times Sit to Stand Test Score 7 Comments poor eccentric control PT-OP-G Mobility & Gait Start: 09/06/21 16:03 Freq: Status: Active Protocol: Document 09/07/21 07:30 AMB (Rec: 09/08/21 08:56 AMB [id number]) OP Mobility Evaluation Bed Mobility Rolling cued punching- pt is able to roll independently, but with difficulty Supine to and from Sit requires UE support OP Gait Assessment Comments Gait Comments Once Bhavesh starts walking he can walk with good step length , needs cues for arm swing and heel/toe, but is able to change gait with cues. Tends to have festinating gait pattern when getting close to chair/bed, changing direction, was able to step over hurdles without festination when concentrating. Stair Climbing Evaluation Devices Stair Climbing Assistive Devices Left Railing,Right Railing Technique/Endurance Stair Climbing Direction Ascend and Descend Stair Climbing Technique Step Over Step Number of Steps Climbed 4 Stair Climbing Set # Repetitions (reps) 2 PT-OP-M Strength Start: 09/06/21 16:03 Freq: Status: Active Protocol: Document 09/07/21 07:30 AMB (Rec: 09/08/21 08:56 AMB [id number]) Hip Strength Hip Manual Muscle Testing Right Flexion (L2) 4 Good Extension (S1) 4 Good Abduction 4 Good Left Flexion (L2) 4 Good Extension (S1) 4 Good Abduction 4 Good Knee Strength Knee Manual Muscle Testing Right Flexion (S2) 5 Normal Extension (L3) 5 Normal Left Flexion (S2) 5 Normal Extension (L3) 5 Normal Ankle/Foot Strength Ankle and Foot Manual Muscle Testing Right Dorsiflexion (L4) 4 Good Left Dorsiflexion (L4) 4 Good PT-OP-Q Treatments Start: 09/06/21 16:03 Freq: Status: Active Protocol: Document 09/21/21 13:00 AMB (Rec: 09/21/21 15:56 AMB [id number]) Therapeutic Exercises Supine Exercises PPT Supine Exercise Name posterior pelvic tilt Side bilateral Reps/Minutes 10x5 SH Comments added to HEP LTR Side bilateral Reps/Minutes [id number] Comments Reviewed HEP Standing Exercises pec stretching Reps/Minutes 30x4 Comments corner sit to abigali Reps/Minutes 10 Comments cued control of descent Gait Training Gait Activity stand/walk turn Comments cued careful with turn- lead with arm- controlled descent Walking Description smooth Device Used none Level of Assistance SBA Distance/Duration 200'x2 Comments cued heel strike/toe push off, trunk rotation/arm -- added cog challenge: counting backwards by 3 from 100, naming foods alphabetically ( very challenging). Pt's gait quickly deteriorates, slows, no arm swing, poor ankle dorsiflexion Neuro Re-Education Treatment Balance Activities foam Comments static balance eyes open good- eyes closed increased sway but able to maintain Other Activities rock and reach Reps/Duration 20 ea side Comments cued big arm swing, pt needed cues for form, keeping knee straight, lifting toes PT-OP-T Assessment and Plan Start: 09/06/21 16:03 Freq: Status: Active Protocol: Document 09/21/21 12:58 AMB (Rec: 09/21/21 13:46 AMB [id number]) Physical Therapy Assessment Goals Three Impairment HEP Short Term Goal (STG) Bhavesh will be independent with a HEP to promote balance/gait/ reduce back pain. STG Duration 4 weeks Two Impairment Bed mobility Short Term Goal (STG) Bhavesh will roll over in bed without back pain. STG Duration 4 weeks One Impairment Gait Short Term Goal (STG) Bhavesh will walk for 6 minutes over smooth terrain while maintaining good step length and arm swing. STG Duration 4 weeks Shelter Goal (LTG) Bhavesh will ambulate without AD over uneven terrain (grass/ gravel) without LOB. LTG Duration 8 weeks Assessment Summary Assessment Pt had one instance with a near LOB. Instructed to keep left knee straight during rock and reach and this decreased his knee pain. Pt challenged by some cognitive/dual challenges and gait declines significantly with dual task. Physical Therapy Plan Next Visit Focus/Plan Next Note Type Treatment Note Next Visit Plan review HEP (PPT, LTR, open book, standing marches, rock and reach). Continue progressing gait and transitions-- walking up to chair and then stand to sit. . . walking around objects, turning while maintaining good amplitude of gait.
--- NOTE | 2021-09-25 12:52 | PT.OTN ---
Current Diagnoses Parkinson's disease (09/25/21) Physical Therapy Treatment Note PT-OP-A Visit Information Start: 09/06/21 16:03 Freq: Status: Active Protocol: Document 09/25/21 11:54 MA (Rec: 09/25/21 12:52 MA [id number]) Out-Patient Physical Therapy Visit Information Visit Information Visit Type Treatment Note Visit Start Time 12:00 Visit Stop Time 12:45 Total Visit Minutes 45 Visit Number 6 Number of CHIEF POWER DISPATCHER Visits 1 PT-OP-B Current Condition Start: 09/06/21 16:03 Freq: Status: Active Protocol: Document 09/07/21 07:30 AMB (Rec: 09/07/21 07:52 AMB [id number]) Current Condition History of Current Condition Onset Date 3-4 years ago Current Complaints Parkinsons History of Current Condition Used to walk around [employer] and [employer], but currently feels like he can only walk 100 yards before legs get heavy. Feels stutter stepping does catch himself on the wall, but does report having a couple falls a month. Feels like falling forward when going to sit down in a chair. Has noticed changes with his handwriting. Rolling over in bed is challenging and painful in the low back. Has been using heat and ice. Taking a backwards step can be challenging. Lives in a two story home with his , doesn't use lower level. 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 Prior Treatments and Tests History of spine fusion- L45 Treatment Goals Patient/Caregiver Goals Balance, less pain with bed mobility Prior Functional Status Baseline Function- ADL's Independent Baseline Function- Mobility Independent Current Functional Impairments (Reported) Functional Limitations- ADL's Limited bed mobility (pain), handwriting, buttoning, donning/doffing shoes Functional Limitations- Mobility/Gait Limited long distance walking, falls in the home, furniture walks, Personal Factors Other Personal Factors That May Effect R eye reduced vision, reports Therapy/Recovery reduced depth perception, history of lumbar fusion PT-OP-C Subjective Start: 09/06/21 16:03 Freq: Status: Active Protocol: Document 09/25/21 11:54 MA (Rec: 09/25/21 12:52 MA [id number]) OP-PT Subjective Patient Comments Patient Comments Pt's L knee pain has been really bothering him recently. He would like to possibly take a break from therapy until he can see the dr for his knee. PT-OP-D Balance Start: 09/06/21 16:03 Freq: Status: Active Protocol: Document 09/07/21 07:30 AMB (Rec: 09/08/21 09:39 AMB [id number]) Balance Tests Other Other Balance Tests Performed NBOS: good NBOS eyes closed: good PT-OP-E Functional Tests Start: 09/06/21 16:03 Freq: Status: Active Protocol: Document 09/07/21 07:30 AMB (Rec: 09/08/21 08:56 AMB [id number]) Functional Tests Five Times Sit to Stand Test Score 7 Comments poor eccentric control PT-OP-G Mobility & Gait Start: 09/06/21 16:03 Freq: Status: Active Protocol: Document 09/07/21 07:30 AMB (Rec: 09/08/21 08:56 AMB [id number]) OP Mobility Evaluation Bed Mobility Rolling cued punching- pt is able to roll independently, but with difficulty Supine to and from Sit requires UE support OP Gait Assessment Comments Gait Comments Once Bhavesh starts walking he can walk with good step length , needs cues for arm swing and heel/toe, but is able to change gait with cues. Tends to have festinating gait pattern when getting close to chair/bed, changing direction, was able to step over hurdles without festination when concentrating. Stair Climbing Evaluation Devices Stair Climbing Assistive Devices Left Railing,Right Railing Technique/Endurance Stair Climbing Direction Ascend and Descend Stair Climbing Technique Step Over Step Number of Steps Climbed 4 Stair Climbing Set # Repetitions (reps) 2 PT-OP-M Strength Start: 09/06/21 16:03 Freq: Status: Active Protocol: Document 09/07/21 07:30 AMB (Rec: 09/08/21 08:56 AMB [id number]) Hip Strength Hip Manual Muscle Testing Right Flexion (L2) 4 Good Extension (S1) 4 Good Abduction 4 Good Left Flexion (L2) 4 Good Extension (S1) 4 Good Abduction 4 Good Knee Strength Knee Manual Muscle Testing Right Flexion (S2) 5 Normal Extension (L3) 5 Normal Left Flexion (S2) 5 Normal Extension (L3) 5 Normal Ankle/Foot Strength Ankle and Foot Manual Muscle Testing Right Dorsiflexion (L4) 4 Good Left Dorsiflexion (L4) 4 Good PT-OP-Q Treatments Start: 09/06/21 16:03 Freq: Status: Active Protocol: Document 09/25/21 11:54 MA (Rec: 09/25/21 12:52 MA [id number]) Therapeutic Exercises Sidelying Exercises Open Book Side bilateral Reps/Minutes [id number] Comments added to HEP for improving posture Standing Exercises sit to abigail Reps/Minutes 10 Comments cued control of descent Marches Equipment Used rail for balance Reps/Minutes 2x20 Comments Reviewed HEP Manual Therapy Treatment Soft Tissue Mobilization Adductors Body Location L adductors Mobilization Type Myofascial Release,Rolling Intensity/Depth Moderate Body Position Supine R LB Body Location lumbar paraspinals, QL, Glute med Mobilization Type Myofascial Release,Strumming, Sustained Pressure,Trigger Point Release Intensity/Depth Moderate Body Position Sidelying Neuro Re-Education Treatment Balance Activities Tadem Details modified tandem - EO/EC Surface solid Reps/Duration 2' Other Activities rock and reach Reps/Duration 20 ea side Comments cued big arm swing, pt needed cues for form, keeping knee straight, lifting toes PT-OP-T Assessment and Plan Start: 09/06/21 16:03 Freq: Status: Active Protocol: Document 09/25/21 11:54 MA (Rec: 09/25/21 12:52 MA [id number]) Physical Therapy Assessment Goals Three Impairment HEP Short Term Goal (STG) Bhavesh will be independent with a HEP to promote balance/gait/ reduce back pain. STG Duration 4 weeks Two Impairment Bed mobility Short Term Goal (STG) Bhavesh will roll over in bed without back pain. STG Duration 4 weeks One Impairment Gait Short Term Goal (STG) Bhavesh will walk for 6 minutes over smooth terrain while maintaining good step length and arm swing. STG Duration 4 weeks Blade Changer Goal (LTG) Bhavesh will ambulate without AD over uneven terrain (grass/ gravel) without LOB. LTG Duration 8 weeks Assessment Summary Assessment Bhavesh feels his L knee pain is limiting his ability to do some exercises in PT and contributing to his poor gait patterns. Pt has decreased LBP and knee pain after STM and is better able to complete exercises due to decreased pain. Discussed with pt continuing with therapy until he can see Dr for his knee to avoid further decline in balance and gait. Educated pt on PT being able to modify treatment as needed for his pain. Pt agreeable to continuing with modified treatments as needed. Physical Therapy Plan Frequency and Duration Frequency of Treatment 2x/Week Duration of Treatment 8 weeks Plan of Care Start Date 09/07/21 Plan of Care End Date 11/02/21 Therapeutic Interventions Therapeutic Interventions Balance Training,Gait Training ,Home Exercise Program,Joint Mobilizations,Manual Therapy, Neuromuscular Re-education, Patient/Caregiver Education, Self-Care/Home Management, Therapeutic Activities, Therapeutic Exercises Next Visit Focus/Plan Next Note Type Treatment Note Next Visit Plan review HEP (PPT, LTR, open book, standing marches, rock and reach). Continue progressing gait and transitions-- walking up to chair and then stand to sit. . . walking around objects, turning while maintaining good amplitude of gait.
--- NOTE | 2021-09-28 16:04 | PT.OTN ---
Current Diagnoses Parkinson's disease (09/28/21) Physical Therapy Treatment Note PT-OP-A Visit Information Start: 09/06/21 16:03 Freq: Status: Active Protocol: Document 09/28/21 13:02 AMB (Rec: 09/28/21 13:48 AMB [id number]) Out-Patient Physical Therapy Visit Information Visit Information Visit Type Treatment Note Visit Start Time 13:00 Visit Stop Time 13:45 Total Visit Minutes 45 Visit Number 7 PT-OP-B Current Condition Start: 09/06/21 16:03 Freq: Status: Active Protocol: Document 09/07/21 07:30 AMB (Rec: 09/07/21 07:52 AMB [id number]) Current Condition History of Current Condition Onset Date 3-4 years ago Current Complaints Parkinsons History of Current Condition Used to walk around [employer] and [employer], but currently feels like he can only walk 100 yards before legs get heavy. Feels stutter stepping does catch himself on the wall, but does report having a couple falls a month. Feels like falling forward when going to sit down in a chair. Has noticed changes with his handwriting. Rolling over in bed is challenging and painful in the low back. Has been using heat and ice. Taking a backwards step can be challenging. Lives in a two story home with his , doesn't use lower level. Currently working parts chaser as a contract forester, but thinking of fully retiring. Prior Treatments and Tests History of spine fusion- L45 Treatment Goals Patient/Caregiver Goals Balance, less pain with bed mobility Prior Functional Status Baseline Function- ADL's Independent Baseline Function- Mobility Independent Current Functional Impairments (Reported) Functional Limitations- ADL's Limited bed mobility (pain), handwriting, buttoning, donning/doffing shoes Functional Limitations- Mobility/Gait Limited long distance walking, falls in the home, furniture walks, Personal Factors Other Personal Factors That May Effect R eye reduced vision, reports Therapy/Recovery reduced depth perception, history of lumbar fusion PT-OP-C Subjective Start: 09/06/21 16:03 Freq: Status: Active Protocol: Document 09/28/21 13:00 AMB (Rec: 09/28/21 15:51 AMB [id number]) OP-PT Subjective Patient Comments Patient Comments Bhavesh continues to note increased knee pain, noticing it in his mann as well now. Has stopped doing rock and reach exercise because of pain , and has not returned to walking because of it. PT-OP-D Balance Start: 09/06/21 16:03 Freq: Status: Active Protocol: Document 09/07/21 07:30 AMB (Rec: 09/08/21 09:39 AMB [id number]) Balance Tests Other Other Balance Tests Performed NBOS: good NBOS eyes closed: good PT-OP-E Functional Tests Start: 09/06/21 16:03 Freq: Status: Active Protocol: Document 09/07/21 07:30 AMB (Rec: 09/08/21 08:56 AMB [id number]) Functional Tests Five Times Sit to Stand Test Score 7 Comments poor eccentric control PT-OP-G Mobility & Gait Start: 09/06/21 16:03 Freq: Status: Active Protocol: Document 09/07/21 07:30 AMB (Rec: 09/08/21 08:56 AMB [id number]) OP Mobility Evaluation Bed Mobility Rolling cued punching- pt is able to roll independently, but with difficulty Supine to and from Sit requires UE support OP Gait Assessment Comments Gait Comments Once Bhavesh starts walking he can walk with good step length , needs cues for arm swing and heel/toe, but is able to change gait with cues. Tends to have festinating gait pattern when getting close to chair/bed, changing direction, was able to step over hurdles without festination when concentrating. Stair Climbing Evaluation Devices Stair Climbing Assistive Devices Left Railing,Right Railing Technique/Endurance Stair Climbing Direction Ascend and Descend Stair Climbing Technique Step Over Step Number of Steps Climbed 4 Stair Climbing Set # Repetitions (reps) 2 PT-OP-M Strength Start: 09/06/21 16:03 Freq: Status: Active Protocol: Document 09/07/21 07:30 AMB (Rec: 09/08/21 08:56 AMB [id number]) Hip Strength Hip Manual Muscle Testing Right Flexion (L2) 4 Good Extension (S1) 4 Good Abduction 4 Good Left Flexion (L2) 4 Good Extension (S1) 4 Good Abduction 4 Good Knee Strength Knee Manual Muscle Testing Right Flexion (S2) 5 Normal Extension (L3) 5 Normal Left Flexion (S2) 5 Normal Extension (L3) 5 Normal Ankle/Foot Strength Ankle and Foot Manual Muscle Testing Right Dorsiflexion (L4) 4 Good Left Dorsiflexion (L4) 4 Good PT-OP-Q Treatments Start: 09/06/21 16:03 Freq: Status: Active Protocol: Document 09/28/21 13:02 AMB (Rec: 09/28/21 13:48 AMB [id number]) Therapeutic Exercises Supine Exercises hip flexor stretch Reps/Minutes 30x2 LTR Side bilateral Reps/Minutes [id number] Comments Reviewed HEP Sitting Exercises ankle stretches Sitting Exercise Name for mann pain. Plantaflexion and inversion Reps/Minutes 30x2 Other Exercises bird dog Reps/Minutes 2x5 Comments cues for TA, form, neutral spine prone on elbows Reps/Minutes 30x2 Gait Training Gait Activity Stairs Device Used single rail Distance/Duration 2x4 6 steps Treatment Focus assessing stairs Comments cued pt to come into full knee extension rather than remaining in partail knee flexion when ascending stairs Manual Therapy Treatment Soft Tissue Mobilization Adductors Body Location L adductors Mobilization Type Myofascial Release,Rolling Intensity/Depth Moderate Body Position Supine PT-OP-T Assessment and Plan Start: 09/06/21 16:03 Freq: Status: Active Protocol: Document 09/28/21 13:02 AMB (Rec: 09/28/21 13:48 AMB [id number]) Physical Therapy Assessment Goals Three Impairment HEP Short Term Goal (STG) Bhavesh will be independent with a HEP to promote balance/gait/ reduce back pain. STG Duration 4 weeks Two Impairment Bed mobility Short Term Goal (STG) Bhavesh will roll over in bed without back pain. STG Duration 4 weeks One Impairment Gait Short Term Goal (STG) Bhavesh will walk for 6 minutes over smooth terrain while maintaining good step length and arm swing. STG Duration 4 weeks Care Home Goal (LTG) Bhavesh will ambulate without AD over uneven terrain (grass/ gravel) without LOB. LTG Duration 8 weeks Assessment Summary Assessment Bhavesh is going to see his orthopedic doctor next week, is doing better with bed mobility, but continues to need cues for posture near constantly. Physical Therapy Plan Next Visit Focus/Plan Next Note Type Treatment Note Next Visit Plan review HEP (PPT, LTR, open book, standing marches, rock and reach). Continue progressing gait and transitions-- walking up to chair and then stand to sit. . . walking around objects, turning while maintaining good amplitude of gait.
--- NOTE | 2021-10-29 11:49 | PT.OPDS ---
Current Diagnoses Parkinson's disease (09/28/21) Visit Care Team Role Provider Type Kike Washburn MD Family Provider Physician Primary Care Provider Specialty: Internal Medicine Address: [address] [place] [address], [address], [place], [address] Email: [email or web address] Gissel Dominguez MD Attending Provider Non-Staff Referring Provider Specialty: Neurology Address: [address] [place], [address] Email: Visit Number Visit Number 7 Discharge Summary PT-OP-B Current Condition Start: 09/06/21 16:03 Freq: Status: Active Protocol: Document 09/07/21 07:30 AMB (Rec: 09/07/21 07:52 AMB [id number]) Current Condition History of Current Condition Onset Date 3-4 years ago Current Complaints Parkinsons History of Current Condition Used to walk around [place] and [place], but currently feels like he can only walk 100 yards before legs get heavy. Feels stutter stepping does catch himself on the wall, but does report having a couple falls a month. Feels like falling forward when going to sit down in a chair. Has noticed changes with his handwriting. Rolling over in bed is challenging and painful in the low back. Has been using heat and ice. Taking a backwards step can be challenging. Lives in a two story home with his , doesn't use lower level. 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 Prior Treatments and Tests History of spine fusion- L45 Treatment Goals Patient/Caregiver Goals Balance, less pain with bed mobility Prior Functional Status Baseline Function- ADL's Independent Baseline Function- Mobility Independent Current Functional Impairments (Reported) Functional Limitations- ADL's Limited bed mobility (pain), handwriting, buttoning, donning/doffing shoes Functional Limitations- Mobility/Gait Limited long distance walking, falls in the home, furniture walks, Personal Factors Other Personal Factors That May Effect R eye reduced vision, reports Therapy/Recovery reduced depth perception, history of lumbar fusion PT-OP-C Subjective Start: 09/06/21 16:03 Freq: Status: Active Protocol: Document 09/28/21 13:00 AMB (Rec: 09/28/21 15:51 AMB [id number]) OP-PT Subjective Patient Comments Patient Comments Bhavesh continues to note increased knee pain, noticing it in his mann as well now. Has stopped doing rock and reach exercise because of pain , and has not returned to walking because of it. PT-OP-D Balance Start: 09/06/21 16:03 Freq: Status: Active Protocol: Document 09/07/21 07:30 AMB (Rec: 09/08/21 09:39 AMB [id number]) Balance Tests Other Other Balance Tests Performed NBOS: good NBOS eyes closed: good PT-OP-E Functional Tests Start: 09/06/21 16:03 Freq: Status: Active Protocol: Document 09/07/21 07:30 AMB (Rec: 09/08/21 08:56 AMB [id number]) Functional Tests Five Times Sit to Stand Test Score 7 Comments poor eccentric control PT-OP-G Mobility & Gait Start: 09/06/21 16:03 Freq: Status: Active Protocol: Document 09/07/21 07:30 AMB (Rec: 09/08/21 08:56 AMB [id number]) OP Mobility Evaluation Bed Mobility Rolling cued punching- pt is able to roll independently, but with difficulty Supine to and from Sit requires UE support OP Gait Assessment Comments Gait Comments Once Bhavesh starts walking he can walk with good step length , needs cues for arm swing and heel/toe, but is able to change gait with cues. Tends to have festinating gait pattern when getting close to chair/bed, changing direction, was able to step over hurdles without festination when concentrating. Stair Climbing Evaluation Devices Stair Climbing Assistive Devices Left Railing,Right Railing Technique/Endurance Stair Climbing Direction Ascend and Descend Stair Climbing Technique Step Over Step Number of Steps Climbed 4 Stair Climbing Set # Repetitions (reps) 2 PT-OP-M Strength Start: 09/06/21 16:03 Freq: Status: Active Protocol: Document 09/07/21 07:30 AMB (Rec: 09/08/21 08:56 AMB [id number]) Hip Strength Hip Manual Muscle Testing Right Flexion (L2) 4 Good Extension (S1) 4 Good Abduction 4 Good Left Flexion (L2) 4 Good Extension (S1) 4 Good Abduction 4 Good Knee Strength Knee Manual Muscle Testing Right Flexion (S2) 5 Normal Extension (L3) 5 Normal Left Flexion (S2) 5 Normal Extension (L3) 5 Normal Ankle/Foot Strength Ankle and Foot Manual Muscle Testing Right Dorsiflexion (L4) 4 Good Left Dorsiflexion (L4) 4 Good PT-OP-T Assessment and Plan Start: 09/06/21 16:03 Freq: Status: Active Protocol: Document 10/29/21 11:47 AMB (Rec: 10/29/21 11:49 AMB [id number]) Physical Therapy Assessment Goals Three Impairment HEP Short Term Goal (STG) Bhavesh will be independent with a HEP to promote balance/gait/ reduce back pain. STG Duration 4 weeks Two Impairment Bed mobility Short Term Goal (STG) Bhavesh will roll over in bed without back pain. STG Duration 4 weeks One Impairment Gait Short Term Goal (STG) Bhavesh will walk for 6 minutes over smooth terrain while maintaining good step length and arm swing. STG Duration 4 weeks Store Stock Help Goal (LTG) Bhavesh will ambulate without AD over uneven terrain (grass/ gravel) without LOB. LTG Duration 8 weeks Assessment Summary Assessment Bhavesh continued to have knee pain that he felt was limiting his mobility and went to see his orthopedist in regards to this. He therefore canceled his remaining appointments, this was a month ago ,and he has not scheduled more appointments, therefore he is discharged at this time. In his time in PT he was instructed in a HEP focusing on reducing his LOB and improving his gait/mobility especially with directional changes.
== END 2021-10-30 14:18 ==
LOC: PHYS 13:00
PROVIDERS: Family Provider Internal Medicine; PCP Internal Medicine; Referring Provider Psychiatry & Neurology Neurology; Visit Provider Psychiatry & Neurology Neurology
DX: G20 Parkinson's disease (principal)
CPT/HCPCS: 97110; 97112; 97116; 97140; 97161; 97530

== ENCOUNTER 2022-02-18 07:52 | Observation (INO) | payer MEDICARE, OTHER, SELFPAY ==
[2022-02-18] VITALS (15 sets, daily range): BP systolic 122–147; BP diastolic 61–83; PULSE 82–104; RESP 16–26; TEMP 36.8–37.9; O2SAT 94–97; BMI 31.8
--- NOTE | 2022-02-18 08:09 | DI.RAD.S_ITS ---
PROCEDURE: XR CHEST 1V INDICATIONS: COVID TECHNIQUE: One view of the chest was acquired. COMPARISON: [facility], RG, XR CXR 1 VIEW, 02/21/2005, 9:02. [facility], CR, CHEST 2 VIEW, 06/05/2011, 16:17. [facility], CR, CHEST 2 VIEW, 06/26/2011, 10:04. FINDINGS: Surgical changes and devices: None. Lungs and pleura: An incomplete inspiratory result is noted, causing a crowded appearance to the lung markings. No focal infiltrates are seen. No pneumothorax or significant pleural effusions are seen. There is a stable right upper lobe nodule. Mediastinum: The cardiac contours are within normal limits. The aorta demonstrates calcification and tortuosity. Bones and chest wall: No suspicious bony lesions. Overlying soft tissues appear unremarkable. IMPRESSION: Low lung volumes, without an acute abnormality seen. No focal infiltrates are seen. If there is clinical concern for a developing pulmonary process, a short-term followup chest series (with PA and lateral views, performed in deep inspiration) is suggested for further evaluation. Right upper lobe nodule, similar to 2004 and considered to be benign. Dictated by: Joao Andrea M.D. on 02/18/2022 at 7:38 Approved by: Joao Andrea M.D. on 02/18/2022 at 7:40
--- NOTE | 2022-02-18 08:19 | ED_ITS ---
HPI - General Adult General Chief complaint: Upper Respiratory Symptoms Stated complaint: weakness, covid positive Time Seen by Provider: 02/18/22 07:53 History of Present Illness HPI narrative: 77-year-old gentleman with history of hypertension, hyperlipidemia, Parkinson's disease who presents with 2 days of slight cough, low-grade fever increasing weakness. They did a home COVID test yesterday that was negative. Last night weakness progressed to the point that he was unable to get to the bathroom by himself and this morning he was unable to sit up in bed. It is a global weakne ss with no significant pain associated. Home COVID test this morning was positive. He is vaccinated. He states that he has had a mild headache and felt ?off kilter? and notes that beginning mid day yesterday his large muscle groups were simply not working. He complains of no chest pain, dyspnea or orthopnea. Oxygen saturations on room air at 97%. He has had no vomiting abdominal pain or diarrhea. Related Data Home Medications Medication Instructions Recorded Confirmed MULTIVITAMIN (#MULTIPLE VITAMINS) 1 cap PO Q DAY ##0 05/15/11 08/11/21 Niacin (#NIACIN TD) 250 mg PO BID ##0 05/15/11 08/11/21 aspirin 325 mg tablet 325 mg PO DAILY 06/12/19 08/11/21 Naltrexone 1 tab PO DAILY 08/24/21 brimonidine 0.2 % eye drops 1 drp EYE-RIGHT BID 08/24/21 carbidopa 25 mg-levodopa 100 mg 1 tab PO TID 08/24/21 tablet dorzolamide 22.3 mg-timolol 6.8 1 - 2 drp EYE-RIGHT BID 08/24/21 mg/mL eye drops latanoprost 0.005 % eye drops 1 drp ophthalmic (eye) DAILY 08/24/21 Previous Rx's Medication Instructions Recorded sildenafil (pulm.hypertension) 20 See Rx Instructions PO ONCE PRN 08/11/18 mg tablet sexual activity #30 tabs amlodipine 10 mg tablet 10 mg PO DAILY #90 tabs 08/11/21 benazepril 40 mg tablet 40 mg PO DAILY #90 tabs 08/11/21 gabapentin 300 mg capsule 300 mg PO BEDTIME #90 caps 08/11/21 hydrochlorothiazide 25 mg tablet 25 mg PO DAILY #90 tabs 08/11/21 rosuvastatin 10 mg tablet 10 mg PO DAILY #90 tabs 08/11/21 [address]ing #1 ea 11/02/21 Allergies Allergy/AdvReac Type Severity Reaction Status Date / Time clarithromycin AdvReac Intermediate itching Verified 08/11/21 13:25 [CLARITHROMYCIN] cefuroxime [CEFUROXIME] AdvReac Unknown Verified 08/11/21 13:25 colistin AdvReac Unknown Verified 08/11/21 13:25 [From CORTISPORIN-TC] hydrocortisone AdvReac Unknown Verified 08/11/21 13:25 [From CORTISPORIN-TC] neomycin AdvReac Unknown Verified 08/11/21 13:25 [From CORTISPORIN-TC] thonzonium bromide AdvReac Unknown Verified 08/11/21 13:25 [From CORTISPORIN-TC] Review of Systems Review of Systems Narrative: Remainder of complete review of systems is otherwise unremarkable except for that included in the HPI. Patient History Medical History Erectile dysfunction (11/11/12) History of renal calculi (04/10/11) Hyperlipidemia Hypertension Parkinsonism Surgical History Status post rotator cuff repair (04/26/17) Social History Smoking Status: Never smoker Smoking Status: Never smoker Exam Initial Vital Signs Initial Vital Signs: Vital Signs Temperature 100.2 F H 02/18/22 08:09 Pulse Rate 96 H 02/18/22 08:09 Respiratory Rate 20 02/18/22 08:09 Blood Pressure 137/76 02/18/22 08:09 Pulse Oximetry 97 02/18/22 08:09 Oxygen Delivery Method 02/18/22 08:09 General: Healthy appearing aside from global weakness, in no acute distress. Able to give a complete and coherent history. Well-nourished well-developed HEENT: Moist mucous membranes, normal sclera with reactive pupils, Neck: No JVD, supple Respiratory: Lungs are clear to auscultation, no wheezing no rales no rhonchi. Full and symmetrical air movement Cardiac: Regular rate and rhythm no murmurs no bruits Abdomen: Soft, nontender, good bowel tones, no flank pain Skin: Warm and dry, no rashes Neurologic: Globally weak, pill roll tremor greater left upper extremity than the right. He is able to move all extremities. Extremities: No trauma, well perfused Psych: Cooperative, appropriate insight and affect Course Orders Ordered: ED Orders 02/18/22 08:09 XR chest 1V Stat 02/18/22 08:40 Blood Culture Stat Complete Blood Count AUTO DIFF Stat Comprehensive Metabolic Panel Stat Lactate (Lactic Acid) Stat Magnesium Stat NT-proBNP (BNP-Adult 18+) Stat Procalcitonin Stat Respiratory Panel (Film Array) Stat Troponin I Stat 02/18/22 09:01 EKG-12 Lead Stat 02/18/22 11:03 Urinalysis and Microscopic Stat 02/18/22 11:15 Trop I [Troponin I] Stat Sodium Chloride (Normal Saline 0.9%) 1,000 mls @ 150 mls/hr IV CONT ARACELI Last Admin: 02/18/22 08:36 Dose: 150 mls/hr Documented By: CHARIS Discontinued Medications Acetaminophen (Acetaminophen 325 Mg Tablet) 975 mg PO NOW ONE Stop: 02/18/22 08:09 Last Admin: 02/18/22 08:36 Dose: 975 mg Documented By: CHARIS Potassium Chloride (Potassium Chloride 20 Meq Tab) 40 meq PO NOW ONE Stop: 02/18/22 12:56 Vital Signs Vital signs: Vital Signs - 8 hr 02/18/22 08:09 02/18/22 08:36 02/18/22 09:01 Temperature 100.2 F H 100.2 F H Pulse Rate 96 H 93 H Respiratory Rate 20 20 Blood Pressure 137/76 Pulse Oximetry 97 96 Oxygen Delivery Method Room Air 02/18/22 09:30 02/18/22 09:49 02/18/22 09:48 Temperature 99.4 F Pulse Rate 95 H Respiratory Rate 19 Blood Pressure 122/76 Pulse Oximetry 95 Oxygen Delivery Method Room Air 02/18/22 09:48 02/18/22 10:00 02/18/22 10:00 Temperature Pulse Rate 101 H 97 H Respiratory Rate 18 18 Blood Pressure 126/70 Pulse Oximetry 94 95 Oxygen Delivery Method 02/18/22 10:30 02/18/22 10:30 02/18/22 11:00 Temperature Pulse Rate 93 H Respiratory Rate 19 Blood Pressure 125/61 122/75 Pulse Oximetry 94 Oxygen Delivery Method 02/18/22 11:00 Temperature Pulse Rate 100 H Respiratory Rate 22 Blood Pressure Pulse Oximetry 94 Oxygen Delivery Method Medical Decision Making Lab Data Result diagrams: 02/18/22 08:40 02/18/22 08:40 Labs: Lab Results 02/18/22 02/18/22 02/18/22 Range/Units 08:40 08:40 08:40 WBC 5.9 (4.5-11.0) X10^3/uL RBC 4.22 L (4.5-5.9) X10^6/uL Hgb 13.0 L (13.5-17.5) g/dL Hct 37.6 L (41-53) % MCV 89.2 (80-100) fL MCH 30.7 (26-34) PG MCHC 34.5 (30-36) % RDW 13.8 (11.6-14.8) % Plt Count 171 (150-400) X10^3/uL Neut % (Auto) 65.1 (50-75) % Lymph % (Auto) 15.8 L (25-40) % [place] % (Auto) 18.4 H (3-14) % Eos % (Auto) 0.1 L (2-4) % Baso % (Auto) 0.6 (0-2) % Neut # (Auto) 3900 (0622-5776) /uL Lymph # (Auto) 900 L (6850-1823) /uL [place] # (Auto) 1100 H (0-900) /uL Eos # (Auto) 0 (0-450) /uL Baso # (Auto) 0 (0-100) /uL Sodium 135 L (137-145) mmol/L Potassium 3.2 L (3.4-5.1) mmol/L Chloride 99 (98-107) mmol/L Carbon Dioxide 25 (22-32) mmol/L BUN 17 (9-20) mg/dL Creatinine 0.82 (0.66-1.25) mg/dL Estimated GFR > 60 (>60) mL/min BUN/Creatinine Ratio 20.7 (6-22) Glucose 106 (80-110) mg/dL Lactate (0.7-2.1) mmol/L Calcium 8.3 L (8.4-10.2) mg/dL Magnesium 1.7 (1.6-2.3) mg/dL Total Bilirubin 0.4 (0.2-1.3) mg/dL AST 85 H (17-59) IU/L ALT 15 (<50) IU/L Alkaline Phosphatase 55 (38-126) U/L Troponin I 0.043 H (0.01-0.034) ng/mL NT-Pro-B Natriuret Pep 301 (<450) pg/mL Total Protein 6.3 (6.3-8.2) g/dL Albumin 3.7 (3.5-5.0) g/dL Globulin 2.6 (1.7-4.1) g/dL Albumin/Globulin Ratio 1.4 (1.0-2.8) Procalcitonin 0.10 (<0.5) ng/mL Urine Color Urine Appearance Urine pH (4.5-8.0) Ur Specific [place] (1.000-1.035) Urine Protein (Negative) Urine Glucose (UA) (Negative) g/dL Urine Ketones (NEGATIVE) Urine Occult Blood (Negative) Urine Nitrate (Negative) Urine Bilirubin (NEGATIVE) Urine Urobilinogen (0.2) E.U./dL Ur Leukocyte Esterase (NEGATIVE) Urine RBC (0-5/HPF) Urine WBC (0-5/HPF) Urine Bacteria (None) Ur Culture Indicated? Chlamy pneumoniae PCR (Not Detect) Adenovirus (PCR) (Not Detect) B. pertussis DNA (PCR) (Not Detecte) B.parapertussis DNA PCR (Not Detecte) Coronavirus OC43 (PCR) (Not Detect) Coronavirus HKU1 (PCR) (Not Detect) Coronavirus 229E (PCR) (Not Detect) SARS-CoV-2 (PCR) (Not Detecte) Coronavirus NL63 (PCR) (Not Detect) Human Metapneumovir PCR (Not Detect) Influenza Type A (PCR) (Not Detect) Influenza Type B (PCR) (Not Detect) M. pneumoniae (PCR) (Not Detect) Parainfluenza 1 (PCR) (Not Detect) Parainfluenza 2 (PCR) (Not Detect) Parainfluenza 3 (PCR) (Not Detect) Parainfluenza 4 (PCR) (Not Detect) RSV (PCR) (Not Detect) Entero/Rhino (PCR) (Not Detect) 02/18/22 02/18/22 02/18/22 Range/Units 08:40 08:40 11:03 WBC (4.5-11.0) X10^3/uL RBC (4.5-5.9) X10^6/uL Hgb (13.5-17.5) g/dL Hct (41-53) % MCV (80-100) fL MCH (26-34) PG MCHC (30-36) % RDW (11.6-14.8) % Plt Count (150-400) X10^3/uL Neut % (Auto) (50-75) % Lymph % (Auto) (25-40) % [place] % (Auto) (3-14) % Eos % (Auto) (2-4) % Baso % (Auto) (0-2) % Neut # (Auto) (5572-8380) /uL Lymph # (Auto) (0890-8267) /uL [place] # (Auto) (0-900) /uL Eos # (Auto) (0-450) /uL Baso # (Auto) (0-100) /uL Sodium (137-145) mmol/L Potassium (3.4-5.1) mmol/L Chloride (98-107) mmol/L Carbon Dioxide (22-32) mmol/L BUN (9-20) mg/dL Creatinine (0.66-1.25) mg/dL Estimated GFR (>60) mL/min BUN/Creatinine Ratio (6-22) Glucose (80-110) mg/dL Lactate 0.8 (0.7-2.1) mmol/L Calcium (8.4-10.2) mg/dL Magnesium (1.6-2.3) mg/dL Total Bilirubin (0.2-1.3) mg/dL AST (17-59) IU/L ALT (<50) IU/L Alkaline Phosphatase (38-126) U/L Troponin I (0.01-0.034) ng/mL NT-Pro-B Natriuret Pep (<450) pg/mL Total Protein (6.3-8.2) g/dL Albumin (3.5-5.0) g/dL Globulin (1.7-4.1) g/dL Albumin/Globulin Ratio (1.0-2.8) Procalcitonin (<0.5) ng/mL Urine Color Yellow Urine Appearance Clear Urine pH 5.0 (4.5-8.0) Ur Specific [place] 1.010 (1.000-1.035) Urine Protein 1+ H (Negative) Urine Glucose (UA) Negative (Negative) g/dL Urine Ketones 1+ H (NEGATIVE) Urine Occult Blood 3+ H (Negative) Urine Nitrate Negative (Negative) Urine Bilirubin Negative (NEGATIVE) Urine Urobilinogen 0.2 (0.2) E.U./dL Ur Leukocyte Esterase Negative (NEGATIVE) Urine RBC 0-1/hpf (0-5/HPF) Urine WBC 0-1/hpf (0-5/HPF) Urine Bacteria None seen (None) Ur Culture Indicated? Cult not indicated Chlamy pneumoniae PCR Not detected (Not Detect) Adenovirus (PCR) Not detected (Not Detect) B. pertussis DNA (PCR) Not detected (Not Detecte) B.parapertussis DNA PCR Not detected (Not Detecte) Coronavirus OC43 (PCR) Not detected (Not Detect) Coronavirus HKU1 (PCR) Not detected (Not Detect) Coronavirus 229E (PCR) Not detected (Not Detect) SARS-CoV-2 (PCR) Detected H (Not Detecte) Coronavirus NL63 (PCR) Not detected (Not Detect) Human Metapneumovir PCR Not detected (Not Detect) Influenza Type A (PCR) Not detected (Not Detect) Influenza Type B (PCR) Not detected (Not Detect) M. pneumoniae (PCR) Not detected (Not Detect) Parainfluenza 1 (PCR) Not detected (Not Detect) Parainfluenza 2 (PCR) Not detected (Not Detect) Parainfluenza 3 (PCR) Not detected (Not Detect) Parainfluenza 4 (PCR) Not detected (Not Detect) RSV (PCR) Detected H (Not Detect) Entero/Rhino (PCR) Not detected (Not Detect) 02/18/22 Range/Units 11:15 WBC (4.5-11.0) X10^3/uL RBC (4.5-5.9) X10^6/uL Hgb (13.5-17.5) g/dL Hct (41-53) % MCV (80-100) fL MCH (26-34) PG MCHC (30-36) % RDW (11.6-14.8) % Plt Count (150-400) X10^3/uL Neut % (Auto) (50-75) % Lymph % (Auto) (25-40) % [place] % (Auto) (3-14) % Eos % (Auto) (2-4) % Baso % (Auto) (0-2) % Neut # (Auto) (5573-2840) /uL Lymph # (Auto) (8402-2393) /uL [place] # (Auto) (0-900) /uL Eos # (Auto) (0-450) /uL Baso # (Auto) (0-100) /uL Sodium (137-145) mmol/L Potassium (3.4-5.1) mmol/L Chloride (98-107) mmol/L Carbon Dioxide (22-32) mmol/L BUN (9-20) mg/dL Creatinine (0.66-1.25) mg/dL Estimated GFR (>60) mL/min BUN/Creatinine Ratio (6-22) Glucose (80-110) mg/dL Lactate (0.7-2.1) mmol/L Calcium (8.4-10.2) mg/dL Magnesium (1.6-2.3) mg/dL Total Bilirubin (0.2-1.3) mg/dL AST (17-59) IU/L ALT (<50) IU/L Alkaline Phosphatase (38-126) U/L Troponin I 0.045 H (0.01-0.034) ng/mL NT-Pro-B Natriuret Pep (<450) pg/mL Total Protein (6.3-8.2) g/dL Albumin (3.5-5.0) g/dL Globulin (1.7-4.1) g/dL Albumin/Globulin Ratio (1.0-2.8) Procalcitonin (<0.5) ng/mL Urine Color Urine Appearance Urine pH (4.5-8.0) Ur Specific [place] (1.000-1.035) Urine Protein (Negative) Urine Glucose (UA) (Negative) g/dL Urine Ketones (NEGATIVE) Urine Occult Blood (Negative) Urine Nitrate (Negative) Urine Bilirubin (NEGATIVE) Urine Urobilinogen (0.2) E.U./dL Ur Leukocyte Esterase (NEGATIVE) Urine RBC (0-5/HPF) Urine WBC (0-5/HPF) Urine Bacteria (None) Ur Culture Indicated? Chlamy pneumoniae PCR (Not Detect) Adenovirus (PCR) (Not Detect) B. pertussis DNA (PCR) (Not Detecte) B.parapertussis DNA PCR (Not Detecte) Coronavirus OC43 (PCR) (Not Detect) Coronavirus HKU1 (PCR) (Not Detect) Coronavirus 229E (PCR) (Not Detect) SARS-CoV-2 (PCR) (Not Detecte) Coronavirus NL63 (PCR) (Not Detect) Human Metapneumovir PCR (Not Detect) Influenza Type A (PCR) (Not Detect) Influenza Type B (PCR) (Not Detect) M. pneumoniae (PCR) (Not Detect) Parainfluenza 1 (PCR) (Not Detect) Parainfluenza 2 (PCR) (Not Detect) Parainfluenza 3 (PCR) (Not Detect) Parainfluenza 4 (PCR) (Not Detect) RSV (PCR) (Not Detect) Entero/Rhino (PCR) (Not Detect) Imaging Data Chest x-ray: Radiologist's Impression: FINDINGS:? ? Surgical changes and devices:? None.? ? Lungs and pleura:? An incomplete inspiratory result is noted, causing a crowded appearance to the lung markings.? No focal infiltrates are seen.? No pneumothorax or significant pleural effusions are seen. ? There is a stable right upper lobe nodule. ? Mediastinum:? The cardiac contours are within normal limits. The aorta d emonstrates calcification and tortuosity. ? Bones and chest wall:? No suspicious bony lesions.? Overlying soft tissues appear unremarkable.? ? ? IMPRESSION:? Low lung volumes, without an acute abnormality seen.? No focal infiltrates are seen. ? If there is clinical concern for a developing pulmonary process, a short-term followup chest series (with PA and lateral views, performed in deep inspiration) is suggested for further evaluation. ? Right upper lobe nodule, similar to 2005 and considered to be benign. ? Dictated by: Joao Andrea M.D. on 02/18/2022 at 7:38 ? ? ECG Data Interpretation: Sinus rhythm No acute ischemic changes For baseline due to underlying baseline tremor MDM Narrative Medical decision making narrative: 77-year-old gentleman testing positive for COVID this morning with severe global weakness but no acute other localizing symptoms. Oxygen saturations are 97% with no respiratory distress. He is having no chest pain, low temperature was treated with Tylenol. Respiratory panel returns positive for both COVID and RSV. Troponin was slightly elevated at 0.043, repeated at 2 hours is 0.045. Patient has no cardiac complaints at this time. Remaining blood work is otherwise unremarkable. Oxygen saturations remain appropriate. would like to admit for his global weakness and supportive care. Dr Washburn is his primary care doc and Dr Fraga is it support consultant today. Findings and concerns are reviewed with patient. He will be admitted to the floor at this time Discharge Plan Departure Patient Disposition: Admitted as Observation Clinical Impression: COVID-19, Respiratory syncytial virus (RSV), Elevated troponin, Acute hypokal emia, Weakness Admit Date/Time: 02/18/22 12:56 Admit Provider: Amber Fraga
[2022-02-18] MEDS: ACETAMINOPHEN 325 MG TABLET 975 MG PO (08:36)
[2022-02-18] MEDS: SODIUM CHLORIDE 0.9% 1,000 ML 150 ML IV ×2 (08:36→14:43)
[2022-02-18 09:45] LABS: Add Manual Diff / Slide Review NO; Basophils Absolute Auto 0 /uL (0-100); Basophils Percent Auto 0.6 % (0-2); Eosinophils Absolute Auto 0 /uL (0-450); Eosinophils Percent Auto 0.1 % (2-4); Hematocrit 37.6 % (41-53); Lymphocytes Absolute Auto 900 /uL (1100-4500); Lymphocytes Percent Auto 15.8 % (25-40); Mean Corpuscular HGB Conc 34.5 % (30-36); Mean Corpuscular Hemoglobin 30.7 PG (26-34); Mean Corpuscular Volume 89.2 fL (80-100); Monocytes Absolute Auto 1100 /uL (0-900); Monocytes Percent Auto 18.4 % (3-14); Neutrophils Absolute Auto 3900 /uL (1500-7000); Neutrophils Percent Auto 65.1 % (50-75); Platelet Count 171 X10^3/uL (150-400); Red Blood Cell Count 4.22 X10^6/uL (4.5-5.9); Red Cell Distribution Width 13.8 % (11.6-14.8); White Blood Cell Count 5.9 X10^3/uL (4.5-11.0)
[2022-02-18 09:46] LABS: Adenovirus Not Detected (Not Detect); B. parapertussis Not Detected (Not Detecte); Bordetella pertussis Not Detected (Not Detecte); Chlamydophila pneumoniae Not Detected (Not Detect); Coronavirus 229E Not Detected (Not Detect); Coronavirus HKU1 Not Detected (Not Detect); Coronavirus NL 63 Not Detected (Not Detect); Coronavirus OC43 Not Detected (Not Detect); Human Metapneumovirus Not Detected (Not Detect); Human Rhinovirus/Enterovirus Not Detected (Not Detect); Influenza A Not Detected (Not Detect); Influenza B Not Detected (Not Detect); Mycoplasma pneumoniae Not Detected (Not Detect); Parainfluenza Virus 1 Not Detected (Not Detect); Parainfluenza Virus 2 Not Detected (Not Detect); Parainfluenza Virus 3 Not Detected (Not Detect); Parainfluenza Virus 4 Not Detected (Not Detect); Respiratory Syncytial Virus Detected (Not Detect); SARS- CoV-2 Detected (Not Detecte)
[2022-02-18 09:53] LABS: Alanine Aminotransferase 15 IU/L (<50); Albumin 3.7 g/dL (3.5-5.0); Albumin Globulin Ratio 1.4 (1.0-2.8); Alkaline Phosphatase 55 U/L (38-126); Aspartate Aminotransferase 85 IU/L (17-59); BUN Creatinine Ratio 20.7 (6-22); Bilirubin Total 0.4 mg/dL (0.2-1.3); Blood Urea Nitrogen 17 mg/dL (9-20); Calcium 8.3 mg/dL (8.4-10.2); Carbon Dioxide 25 mmol/L (22-32); Chloride 99 mmol/L (98-107); Estimated Glomerular Filt Rate > 60 mL/min (>60); Globulin 2.6 g/dL (1.7-4.1); Glucose 106 mg/dL (80-110); HEMOLYSIS 22 (0-50); Lactate (Lactic Acid) 0.8 mmol/L (0.7-2.1); Potassium 3.2 mmol/L (3.4-5.1); Sodium 135 mmol/L (137-145); Total Protein 6.3 g/dL (6.3-8.2)
[2022-02-18 09:57] LABS: Magnesium 1.7 mg/dL (1.6-2.3)
[2022-02-18 10:10] LABS: NT-proBNP (BNP-Adult 18+) 301 pg/mL (<450); Troponin I 0.043 ng/mL (0.01-0.034)
[2022-02-18 11:16] LABS: Appearance Urine UA CLEAR; Bilirubin Urine UA NEGATIVE (NEGATIVE); Color Urine UA YELLOW; Glucose Urine UA NEGATIVE (Negative); Ketones Urine UA 1+ (NEGATIVE); Leukocyte Esterase Urine UA NEGATIVE (NEGATIVE); Nitrite Urine UA NEGATIVE (Negative); Occult Blood Urine UA 3+ (Negative); Protein Urine UA 1+ (Negative); Urobilinogen Urine UA 0.2 E.U./dL (0.2)
[2022-02-18 11:27] LABS: RBC Urine 0-1/HPF (0-5/HPF); WBC Urine 0-1/HPF (0-5/HPF)
[2022-02-18 11:28] LABS: Bacteria Urine None Seen; Culture Indicated Urine Cult Not Indicated
[2022-02-18 11:51] LABS: Troponin I 0.045 ng/mL (0.01-0.034)
--- NOTE | 2022-02-18 15:09 | PM.HP.1 ---
History of Present Illness History of Present Illness Date Patient Seen: 02/18/22 Time Patient Seen: 15:09 Date of Onset of Symptoms: 02/17/22 Chief complaint: weakness, covid positive Narrative: Is a 77-year-old male who presents to emergency department for complaints of a 24 hour history of illness. He started feeling poorly yesterday and took a COVID test which was negative and then in the middle the night had severe myalgias and was unable to get to the bathroom. It took him about 30 minutes to crawl to the bathroom. He presented to the emergency room was found to be COVID positive. Otherwise his exam was unremarkable and chest x-ray was normal and he was really having minimal respiratory symptoms of illness. He was admitted to the hospital for further treatment and diagnostics. He complains of a sore throat mild cough but no shortness of breath and no chest pain and just severe global weakness which is affecting his ability to ambulate and he has underlying Parkinson's disease. He is vaccinated but has had no COVID boosters. He is never had COVID-19 illness per his knowledge. His PCP is Dr. Washburn. His neurologist is Dr. Mccoy at [facility]. Prior to this patient had been in his usual state of health. He is not had any significant progression of his Parkinson's and was seen by his neurologist in November of 2021. Last visit with Dr. Washburn was in July of 2021 to follow-up on his chronic medical problems of hypertension and hyperlipidemia. Patient denies any urinary symptoms. He denies any abdominal pain or black tarry stools. He denies any fever. He denies any rash. Denies any headache. Denies any neurologic symptoms. Denies any chest pain or shortness of breath or PND or orthopnea. Twelve point review of systems otherwise unremarkable Past medical history: 1. Parkinson's disease 2. Hypertension 3. Hyperlipidemia 4. Nephrolithiasis 5. Erectile dysfunction Allergies multiple drug allergies Past surgical history 1. Left rotator cuff repair 2. Sinus surgery 3. Spinal fusion in 1979 Family history: Mom from old age no family history of Parkinson's disorder Health related behavior Patient has never smoked he does not drink alcohol he does not use illicit drugs Social history: Patient is and has been for 52 years. He lives in an [facility]. He has 4 children and 19 grandchildren . Patient History Medical History Erectile dysfunction (11/11/12) History of renal calculi (04/10/11) Hyperlipidemia Hypertension Parkinsonism Surgical History Status post rotator cuff repair (04/26/17) Family & Social History Social History: household members spouse Prior Living Arrangements House Safety & Behavioral: Feels Safe in Current Yes Environment Been Physically Hurt or No Threatened By a Person Tobacco & Substance use: Smoking Status Never smoker alcohol intake current alcohol intake frequency 0-2 drinks per day Substance Use Type does not use Meds Home Medications and Allergies Home Medications Medication Instructions Recorded Confirmed Type MULTIVITAMIN (#MULTIPLE VITAMINS) 1 cap PO Q DAY ##0 05/15/11 02/18/22 History Niacin (#NIACIN TD) 250 mg PO BID ##0 05/15/11 02/18/22 History sildenafil (pulm.hypertension) 20 See Rx Instructions PO ONCE PRN 08/11/18 02/18/22 Rx mg tablet sexual activity #30 tabs aspirin 325 mg tablet 325 mg PO DAILY 06/12/19 02/18/22 History amlodipine 10 mg tablet 10 mg PO DAILY #90 tabs 08/11/21 02/18/22 Rx benazepril 40 mg tablet 40 mg PO DAILY #90 tabs 08/11/21 02/18/22 Rx gabapentin 300 mg capsule 300 mg PO BEDTIME #90 caps 08/11/21 02/18/22 Rx hydrochlorothiazide 25 mg tablet 25 mg PO DAILY #90 tabs 08/11/21 02/18/22 Rx rosuvastatin 10 mg tablet 10 mg PO DAILY #90 tabs 08/11/21 02/18/22 Rx Naltrexone 1 tab PO BEDTIME 08/24/21 02/18/22 History brimonidine 0.2 % eye drops 1 drp EYE-BOTH DAILY 08/24/21 02/18/22 History carbidopa 25 mg-levodopa 100 mg 1 tab PO TID 08/24/21 02/18/22 History tablet dorzolamide 22.3 mg-timolol 6.8 1 - 2 drp EYE-RIGHT BID 08/24/21 02/18/22 History mg/mL eye drops latanoprost 0.005 % eye drops 1 drp ophthalmic (eye) BID 08/24/21 02/18/22 History melatonin 3 mg tablet 6 mg PO BEDTIME PRN Insomnia 02/18/22 02/18/22 History Allergies Allergy/AdvReac Type Severity Reaction Status Date / Time clarithromycin AdvReac Intermediate itching Verified 08/11/21 13:25 [CLARITHROMYCIN] cefuroxime [CEFUROXIME] AdvReac Unknown Verified 08/11/21 13:25 colistin AdvReac Unknown Verified 08/11/21 13:25 [From CORTISPORIN-TC] hydrocortisone AdvReac Unknown Verified 08/11/21 13:25 [From CORTISPORIN-TC] neomycin AdvReac Unknown Verified 08/11/21 13:25 [From CORTISPORIN-TC] thonzonium bromide AdvReac Unknown Verified 08/11/21 13:25 [From CORTISPORIN-TC] Exam Vital Signs (past 8 hours): - 02/18/22 08:09 02/18/22 08:36 02/18/22 09:01 Temperature 100.2 F H 100.2 F H Pulse Rate 96 H 93 H Respiratory Rate 20 20 Blood Pressure 137/76 Pulse Oximetry 97 96 Oxygen Delivery Method Room Air 02/18/22 09:30 02/18/22 09:49 02/18/22 09:48 Temperature 99.4 F Pulse Rate 95 H Respiratory Rate 19 Blood Pressure 122/76 Pulse Oximetry 95 Oxygen Delivery Method Room Air 02/18/22 09:48 02/18/22 10:00 02/18/22 10:00 Temperature Pulse Rate 101 H 97 H Respiratory Rate 18 18 Blood Pressure 126/70 Pulse Oximetry 94 95 Oxygen Delivery Method 02/18/22 10:30 02/18/22 10:30 02/18/22 11:00 Temperature Pulse Rate 93 H Respiratory Rate 19 Blood Pressure 125/61 122/75 Pulse Oximetry 94 Oxygen Delivery Method 02/18/22 11:00 02/18/22 11:14 02/18/22 11:14 Temperature Pulse Rate 100 H 100 H Respiratory Rate 22 22 Blood Pressure 130/71 Pulse Oximetry 94 95 Oxygen Delivery Method 02/18/22 11:35 02/18/22 12:00 02/18/22 12:30 Temperature Pulse Rate 104 H 98 H 93 H Respiratory Rate 26 H 16 Blood Pressure Pulse Oximetry 96 96 Oxygen Delivery Method 02/18/22 13:00 Temperature Pulse Rate 95 H Respiratory Rate Blood Pressure Pulse Oximetry Oxygen Delivery Method Oxygen Delivery Method Room Air Narrative Exam Narrative: Afebrile vital signs are stable. He is alert and oriented no apparent distress HEENT is remarkable for nasal congestion and mild pharyngeal erythema but no mucosal lesions. Mucosal membranes are moist and pink Neck: Supple without adenopathy or thyromegaly and no bruit Chest: Clear to auscultation without wheezes rhonchi or crackles Cor: Regular rate and rhythm without a murmur, distant S1-S2 Abdomen: Positive bowel sounds, soft, nontender, nondistended Extremities no edema Neurologic exam shows resting tremor and cogwheeling upper extremities and pill rolling Objective Labs Result Diagrams: 02/18/22 08:40 02/18/22 08:40 Labs: Laboratory Results - last 24 hr 02/18/22 02/18/22 02/18/22 08:40 08:40 08:40 WBC 5.9 RBC 4.22 L Hgb 13.0 L Hct 37.6 L MCV 89.2 MCH 30.7 MCHC 34.5 RDW 13.8 Plt Count 171 Neut % (Auto) 65.1 Lymph % (Auto) 15.8 L [place] % (Auto) 18.4 H Eos % (Auto) 0.1 L Baso % (Auto) 0.6 Neut # (Auto) 3900 Lymph # (Auto) 900 L [place] # (Auto) 1100 H Eos # (Auto) 0 Baso # (Auto) 0 Sodium 135 L Potassium 3.2 L Chloride 99 Carbon Dioxide 25 BUN 17 Creatinine 0.82 Estimated GFR > 60 BUN/Creatinine Ratio 20.7 Glucose 106 Lactate Calcium 8.3 L Magnesium 1.7 Total Bilirubin 0.4 AST 85 H ALT 15 Alkaline Phosphatase 55 Troponin I 0.043 H NT-Pro-B Natriuret Pep 301 Total Protein 6.3 Albumin 3.7 Globulin 2.6 Albumin/Globulin Ratio 1.4 Procalcitonin 0.10 Urine Color Urine Appearance Urine pH Ur Specific [place] Urine Protein Urine Glucose (UA) Urine Ketones Urine Occult Blood Urine Nitrate Urine Bilirubin Urine Urobilinogen Ur Leukocyte Esterase Urine RBC Urine WBC Urine Bacteria Ur Culture Indicated? Chlamy pneumoniae PCR Adenovirus (PCR) B. pertussis DNA (PCR) B.parapertussis DNA PCR Coronavirus OC43 (PCR) Coronavirus HKU1 (PCR) Coronavirus 229E (PCR) SARS-CoV-2 (PCR) Coronavirus NL63 (PCR) Human Metapneumovir PCR Influenza Type A (PCR) Influenza Type B (PCR) M. pneumoniae (PCR) Parainfluenza 1 (PCR) Parainfluenza 2 (PCR) Parainfluenza 3 (PCR) Parainfluenza 4 (PCR) RSV (PCR) Entero/Rhino (PCR) 02/18/22 02/18/22 02/18/22 08:40 08:40 11:03 WBC RBC Hgb Hct MCV MCH MCHC RDW Plt Count Neut % (Auto) Lymph % (Auto) [place] % (Auto) Eos % (Auto) Baso % (Auto) Neut # (Auto) Lymph # (Auto) [place] # (Auto) Eos # (Auto) Baso # (Auto) Sodium Potassium Chloride Carbon Dioxide BUN Creatinine Estimated GFR BUN/Creatinine Ratio Glucose Lactate 0.8 Calcium Magnesium Total Bilirubin AST ALT Alkaline Phosphatase Troponin I NT-Pro-B Natriuret Pep Total Protein Albumin Globulin Albumin/Globulin Ratio Procalcitonin Urine Color Yellow Urine Appearance Clear Urine pH 5.0 Ur Specific [place] 1.010 Urine Protein 1+ H Urine Glucose (UA) Negative Urine Ketones 1+ H Urine Occult Blood 3+ H Urine Nitrate Negative Urine Bilirubin Negative Urine Urobilinogen 0.2 Ur Leukocyte Esterase Negative Urine RBC 0-1/hpf Urine WBC 0-1/hpf Urine Bacteria None seen Ur Culture Indicated? Cult not indicated Chlamy pneumoniae PCR Not detected Adenovirus (PCR) Not detected B. pertussis DNA (PCR) Not detected B.parapertussis DNA PCR Not detected Coronavirus OC43 (PCR) Not detected Coronavirus HKU1 (PCR) Not detected Coronavirus 229E (PCR) Not detected SARS-CoV-2 (PCR) Detected H Coronavirus NL63 (PCR) Not detected Human Metapneumovir PCR Not detected Influenza Type A (PCR) Not detected Influenza Type B (PCR) Not detected M. pneumoniae (PCR) Not detected Parainfluenza 1 (PCR) Not detected Parainfluenza 2 (PCR) Not detected Parainfluenza 3 (PCR) Not detected Parainfluenza 4 (PCR) Not detected RSV (PCR) Detected H Entero/Rhino (PCR) Not detected 02/18/22 11:15 WBC RBC Hgb Hct MCV MCH MCHC RDW Plt Count Neut % (Auto) Lymph % (Auto) [place] % (Auto) Eos % (Auto) Baso % (Auto) Neut # (Auto) Lymph # (Auto) [place] # (Auto) Eos # (Auto) Baso # (Auto) Sodium Potassium Chloride Carbon Dioxide BUN Creatinine Estimated GFR BUN/Creatinine Ratio Glucose Lactate Calcium Magnesium Total Bilirubin AST ALT Alkaline Phosphatase Troponin I 0.045 H NT-Pro-B Natriuret Pep Total Protein Albumin Globulin Albumin/Globulin Ratio Procalcitonin Urine Color Urine Appearance Urine pH Ur Specific [place] Urine Protein Urine Glucose (UA) Urine Ketones Urine Occult Blood Urine Nitrate Urine Bilirubin Urine Urobilinogen Ur Leukocyte Esterase Urine RBC Urine WBC Urine Bacteria Ur Culture Indicated? Chlamy pneumoniae PCR Adenovirus (PCR) B. pertussis DNA (PCR) B.parapertussis DNA PCR Coronavirus OC43 (PCR) Coronavirus HKU1 (PCR) Coronavirus 229E (PCR) SARS-CoV-2 (PCR) Coronavirus NL63 (PCR) Human Metapneumovir PCR Influenza Type A (PCR) Influenza Type B (PCR) M. pneumoniae (PCR) Parainfluenza 1 (PCR) Parainfluenza 2 (PCR) Parainfluenza 3 (PCR) Parainfluenza 4 (PCR) RSV (PCR) Entero/Rhino (PCR) Assessment & Plan Assessment & Plan narrative: 77-year-old male with a history of underlying Parkinson's disease with current COVID-19 illness but not COVID-19 pneumonia Plan: Will go ahead admit patient to the hospital for further monitoring and treatment. At this point we will not initiate treatment with remdesivir, dexamethasone or monoclonal antibodies due to patient not having significant respiratory symptoms or hypoxemia. We will monitor closely. Will provide supportive care with Cepacol throat lozenges, cough medicine, IV fluids Assessment 2. DVT prophylaxis Plan will provide Lovenox Assessment 3. Parkinson's disease Plan: Will continue outpatient medications. Pending how he does consider physical therapy. Assessment 4. Hypertension stable Plan: Continue outpatient medication Assessment 5. Hyperlipidemia Plan: Continue outpatient medications Assessment 6. Troponinemia. Suspect related to infectious process. No symptoms of cardiac abnormality. EKG was normal. We will do serial blood work. And treat as indicated. Code status is DNR. 45 minutes was spent with patient reviewing his chart discussing with ER physician, nursing formulating a plan and documentation. Time Spent With Patient Critical Care time: I spent a total of [] minutes of critical care time on this patient's care today; this time is exclusive of procedural time. Quality VTE Deep Vein Thrombosis/Pulmonary Embolism Present on Admission: No
[2022-02-18] MEDS: SODIUM CHLORIDE 0.9% 1,000 ML 100 ML IV (15:38)
[2022-02-18] MEDS: ACETAMINOPHEN 325 MG TABLET 650 MG PO (18:33)
[2022-02-18 18:53] LABS: Troponin I 0.042 ng/mL (0.01-0.034)
[2022-02-18 19:04] LABS: Creatine Kinase 3751 U/L (55-170)
[2022-02-18 19:20] LABS: CKMB % Relative Index 0.3 % (1.5-5.0); Creatine Kinase MB 9.67 ng/mL (<2.37)
[2022-02-18] MEDS: DORZOLAMIDE/TIMOLOL OPHTH 10 ML 1 DROPS EYE-RIGHT (22:05)
[2022-02-18] MEDS: BRIMONIDINE 0.2% OPHTH 5 ML 1 DROPS EYE-BOTH (22:05)
[2022-02-18] MEDS: DOCUSATE 100 MG CAPSULE PO (22:07)
[2022-02-18] MEDS: CARBIDOPA-LEVODOPA 25/100 TABLET 1 EACH PO (22:07)
[2022-02-18] MEDS: ATORVASTATIN 20 MG TABLET PO (22:07)
[2022-02-18] MEDS: GABAPENTIN 300 MG CAPSULE PO (22:07)
[2022-02-18] MEDS: MELATONIN 3 MG TABLET 6 MG PO (22:07)
[2022-02-18] MEDS: LATANOPROST 0.005% OPHTH 2.5 ML 1 DROPS EYE-BOTH (22:09)
[2022-02-18] MEDS: NIACIN 500 MG TABLET 250 MG PO (22:10)
[2022-02-19 03:30] VITALS: BP 147/83; PULSE 68; RESP 18; TEMP 37.2; O2SAT 95
[2022-02-19 07:00] LABS: Add Manual Diff / Slide Review NO; Basophils Absolute Auto 0 /uL (0-100); Basophils Percent Auto 0.8 % (0-2); Eosinophils Absolute Auto 0 /uL (0-450); Eosinophils Percent Auto 0.3 % (2-4); Hematocrit 36.9 % (41-53); Hemoglobin 12.7 g/dL (13.5-17.5); Lymphocytes Absolute Auto 1500 /uL (1100-4500); Lymphocytes Percent Auto 24.7 % (25-40); Mean Corpuscular HGB Conc 34.6 % (30-36); Mean Corpuscular Hemoglobin 30.8 PG (26-34); Mean Corpuscular Volume 89.1 fL (80-100); Monocytes Absolute Auto 1000 /uL (0-900); Neutrophils Absolute Auto 3500 /uL (1500-7000); Neutrophils Percent Auto 58.2 % (50-75); Platelet Count 145 X10^3/uL (150-400); Red Blood Cell Count 4.14 X10^6/uL (4.5-5.9); Red Cell Distribution Width 13.8 % (11.6-14.8); White Blood Cell Count 6.1 X10^3/uL (4.5-11.0)
[2022-02-19 07:05] VITALS: BP 146/85; PULSE 80; RESP 18; TEMP 37.6; O2SAT 97
[2022-02-19 07:14] LABS: BUN Creatinine Ratio 17.8 (6-22); Blood Urea Nitrogen 13 mg/dL (9-20); Calcium 7.7 mg/dL (8.4-10.2); Carbon Dioxide 29 mmol/L (22-32); Chloride 105 mmol/L (98-107); Estimated Glomerular Filt Rate > 60 mL/min (>60); Glucose 104 mg/dL (80-110); HEMOLYSIS < 15 (0-50); Potassium 3.4 mmol/L (3.4-5.1); Sodium 138 mmol/L (137-145)
[2022-02-19 07:23] LABS: Troponin I 0.022 ng/mL (0.01-0.034)
[2022-02-19 07:31] LABS: Creatine Kinase 9064 U/L (55-170)
[2022-02-19 07:46] LABS: CKMB % Relative Index 0.1 % (1.5-5.0); Creatine Kinase MB 6.42 ng/mL (<2.37)
--- NOTE | 2022-02-19 08:05 | P.PN_ITS ---
Subjective Subjective Date Patient Seen: 02/19/22 Time Patient Seen: 07:45 Interval history: Patient reports still feeling quite weak and puny but no additional symptoms. Intermittent cough but really no respiratory symptoms at all. Has not really been up out of bed and has not had breakfast yet when I see him this morning Exam Vital Signs (past 8 hours): - 02/19/22 03:30 Temperature 98.9 F Pulse Rate 68 Respiratory Rate 18 Blood Pressure 147/83 H Pulse Oximetry 95 Oxygen Flow Rate 0 Oxygen Delivery Method Room Air Oxygen Flow Rate 0 Objective Labs Result Diagrams: 02/19/22 06:38 02/19/22 06:38 Labs: Laboratory Results - last 24 hr 02/18/22 02/18/22 02/18/22 08:40 08:40 08:40 WBC 5.9 RBC 4.22 L Hgb 13.0 L Hct 37.6 L MCV 89.2 MCH 30.7 MCHC 34.5 RDW 13.8 Plt Count 171 Neut % (Auto) 65.1 Lymph % (Auto) 15.8 L [place] % (Auto) 18.4 H Eos % (Auto) 0.1 L Baso % (Auto) 0.6 Neut # (Auto) 3900 Lymph # (Auto) 900 L [place] # (Auto) 1100 H Eos # (Auto) 0 Baso # (Auto) 0 Sodium 135 L Potassium 3.2 L Chloride 99 Carbon Dioxide 25 BUN 17 Creatinine 0.82 Estimated GFR > 60 BUN/Creatinine Ratio 20.7 Glucose 106 Lactate Calcium 8.3 L Magnesium 1.7 Total Bilirubin 0.4 AST 85 H ALT 15 Alkaline Phosphatase 55 Total Creatine Kinase CK-MB (CK-2) CK-MB (CK-2) Rel Index Troponin I 0.043 H NT-Pro-B Natriuret Pep 301 Total Protein 6.3 Albumin 3.7 Globulin 2.6 Albumin/Globulin Ratio 1.4 Procalcitonin 0.10 Urine Color Urine Appearance Urine pH Ur Specific [place] Urine Protein Urine Glucose (UA) Urine Ketones Urine Occult Blood Urine Nitrate Urine Bilirubin Urine Urobilinogen Ur Leukocyte Esterase Urine RBC Urine WBC Urine Bacteria Ur Culture Indicated? Chlamy pneumoniae PCR Adenovirus (PCR) B. pertussis DNA (PCR) B.parapertussis DNA PCR Coronavirus OC43 (PCR) Coronavirus HKU1 (PCR) Coronavirus 229E (PCR) SARS-CoV-2 (PCR) Coronavirus NL63 (PCR) Human Metapneumovir PCR Influenza Type A (PCR) Influenza Type B (PCR) M. pneumoniae (PCR) Parainfluenza 1 (PCR) Parainfluenza 2 (PCR) Parainfluenza 3 (PCR) Parainfluenza 4 (PCR) RSV (PCR) Entero/Rhino (PCR) 02/18/22 02/18/22 02/18/22 08:40 08:40 08:55 WBC RBC Hgb Hct MCV MCH MCHC RDW Plt Count Neut % (Auto) Lymph % (Auto) [place] % (Auto) Eos % (Auto) Baso % (Auto) Neut # (Auto) Lymph # (Auto) [place] # (Auto) Eos # (Auto) Baso # (Auto) Sodium Potassium Chloride Carbon Dioxide BUN Creatinine Estimated GFR BUN/Creatinine Ratio Glucose Lactate 0.8 Calcium Magnesium Total Bilirubin AST ALT Alkaline Phosphatase Total Creatine Kinase 3751 H CK-MB (CK-2) 9.67 H CK-MB (CK-2) Rel Index 0.3 L Troponin I 0.042 H NT-Pro-B Natriuret Pep Total Protein Albumin Globulin Albumin/Globulin Ratio Procalcitonin Urine Color Urine Appearance Urine pH Ur Specific [place] Urine Protein Urine Glucose (UA) Urine Ketones Urine Occult Blood Urine Nitrate Urine Bilirubin Urine Urobilinogen Ur Leukocyte Esterase Urine RBC Urine WBC Urine Bacteria Ur Culture Indicated? Chlamy pneumoniae PCR Not detected Adenovirus (PCR) Not detected B. pertussis DNA (PCR) Not detected B.parapertussis DNA PCR Not detected Coronavirus OC43 (PCR) Not detected Coronavirus HKU1 (PCR) Not detected Coronavirus 229E (PCR) Not detected SARS-CoV-2 (PCR) Detected H Coronavirus NL63 (PCR) Not detected Human Metapneumovir PCR Not detected Influenza Type A (PCR) Not detected Influenza Type B (PCR) Not detected M. pneumoniae (PCR) Not detected Parainfluenza 1 (PCR) Not detected Parainfluenza 2 (PCR) Not detected Parainfluenza 3 (PCR) Not detected Parainfluenza 4 (PCR) Not detected RSV (PCR) Detected H Entero/Rhino (PCR) Not detected 02/18/22 02/18/22 02/19/22 11:03 11:15 06:38 WBC 6.1 RBC 4.14 L Hgb 12.7 L Hct 36.9 L MCV 89.1 MCH 30.8 MCHC 34.6 RDW 13.8 Plt Count 145 L Neut % (Auto) 58.2 Lymph % (Auto) 24.7 L [place] % (Auto) 16.0 H Eos % (Auto) 0.3 L Baso % (Auto) 0.8 Neut # (Auto) 3500 Lymph # (Auto) 1500 [place] # (Auto) 1000 H Eos # (Auto) 0 Baso # (Auto) 0 Sodium Potassium Chloride Carbon Dioxide BUN Creatinine Estimated GFR BUN/Creatinine Ratio Glucose Lactate Calcium Magnesium Total Bilirubin AST ALT Alkaline Phosphatase Total Creatine Kinase CK-MB (CK-2) CK-MB (CK-2) Rel Index Troponin I 0.045 H NT-Pro-B Natriuret Pep Total Protein Albumin Globulin Albumin/Globulin Ratio Procalcitonin Urine Color Yellow Urine Appearance Clear Urine pH 5.0 Ur Specific [place] 1.010 Urine Protein 1+ H Urine Glucose (UA) Negative Urine Ketones 1+ H Urine Occult Blood 3+ H Urine Nitrate Negative Urine Bilirubin Negative Urine Urobilinogen 0.2 Ur Leukocyte Esterase Negative Urine RBC 0-1/hpf Urine WBC 0-1/hpf Urine Bacteria None seen Ur Culture Indicated? Cult not indicated Chlamy pneumoniae PCR Adenovirus (PCR) B. pertussis DNA (PCR) B.parapertussis DNA PCR Coronavirus OC43 (PCR) Coronavirus HKU1 (PCR) Coronavirus 229E (PCR) SARS-CoV-2 (PCR) Coronavirus NL63 (PCR) Human Metapneumovir PCR Influenza Type A (PCR) Influenza Type B (PCR) M. pneumoniae (PCR) Parainfluenza 1 (PCR) Parainfluenza 2 (PCR) Parainfluenza 3 (PCR) Parainfluenza 4 (PCR) RSV (PCR) Entero/Rhino (PCR) 02/19/22 02/19/22 06:38 06:38 WBC RBC Hgb Hct MCV MCH MCHC RDW Plt Count Neut % (Auto) Lymph % (Auto) [place] % (Auto) Eos % (Auto) Baso % (Auto) Neut # (Auto) Lymph # (Auto) [place] # (Auto) Eos # (Auto) Baso # (Auto) Sodium 138 Potassium 3.4 Chloride 105 Carbon Dioxide 29 BUN 13 Creatinine 0.73 Estimated GFR > 60 BUN/Creatinine Ratio 17.8 Glucose 104 Lactate Calcium 7.7 L Magnesium Total Bilirubin AST ALT Alkaline Phosphatase Total Creatine Kinase 9064 H D CK-MB (CK-2) 6.42 H CK-MB (CK-2) Rel Index 0.1 L Troponin I 0.022 NT-Pro-B Natriuret Pep Total Protein Albumin Globulin Albumin/Globulin Ratio Procalcitonin Urine Color Urine Appearance Urine pH Ur Specific [place] Urine Protein Urine Glucose (UA) Urine Ketones Urine Occult Blood Urine Nitrate Urine Bilirubin Urine Urobilinogen Ur Leukocyte Esterase Urine RBC Urine WBC Urine Bacteria Ur Culture Indicated? Chlamy pneumoniae PCR Adenovirus (PCR) B. pertussis DNA (PCR) B.parapertussis DNA PCR Coronavirus OC43 (PCR) Coronavirus HKU1 (PCR) Coronavirus 229E (PCR) SARS-CoV-2 (PCR) Coronavirus NL63 (PCR) Human Metapneumovir PCR Influenza Type A (PCR) Influenza Type B (PCR) M. pneumoniae (PCR) Parainfluenza 1 (PCR) Parainfluenza 2 (PCR) Parainfluenza 3 (PCR) Parainfluenza 4 (PCR) RSV (PCR) Entero/Rhino (PCR) [facility] Medical History Erectile dysfunction (11/11/12) History of renal calculi (04/10/11) Hyperlipidemia Hypertension Parkinsonism Surgical History Status post rotator cuff repair (04/26/17) Social History household members: spouse Smoking Status: Never smoker alcohol intake: current Assessment & Plan Assessment & Plan narrative: 1. Global weakness with elevated CPK and muscle weakness. All likely secondary to his viral infection most likely COVID. I believe his RSV is more of a ?red carrillo? than anything else. Continue with supportive care in therapies for the above. 2. COVID-19 infection-no evidence of significant pneumonitis at this point. Continue to monitor but no indication for antiviral or antibody therapy at this point in my opinion. Continue with respiratory precautions for staff and other patients in the hospital 3. RSV infection-not clear how much of any of his symptoms are related to RSV. This may be more of a co infection without real symptomatology etcetera. Usually RSV adults is fairly minimal 4. Elevated troponin-patient's troponin remains borderline elevated in the face of a significant elevated CPK I believe overall there is no evidence of active ischemia or reason to be concerned about cardiac issues. Will not plan to further evaluate 5. Parkinson's-continue patient's usual meds 6. Hypertension-continue patient's usual meds Overall patient is stable anyway. Hopefully with time and supportive care he will improve and be able to return home in the next 24-48 hours. If not improving on his own may benefit from skilled therapies but will hold off on that for now in part because of his positive COVID status and I am not clear that the benefit is there to put staff at risk etcetera Note: Greater than 20 minutes total time was spent on day of service, evaluating the patient on the floor, including examining the patient, discussing clinical course with clinical and nursing staff, reviewing clinical course in the computer, preparing documentation and writing orders for continued management of care, discussing status with family as appropriate, reviewing plans for the next 24 hours with both patient/family and nursing staff as appropriate. Time Spent With Patient Critical Care time: I spent a total of [] minutes of critical care time on this patient's care today; this time is exclusive of procedural time. Quality VTE Deep Vein Thrombosis/Pulmonary Embolism Present on Admission: No
[2022-02-19] MEDS: ENOXAPARIN 40 MG/0.4 ML SYRINGE SUBCUT (09:44)
[2022-02-19] MEDS: hydroCHLOROthiazide 25 MG TABLET PO (09:45)
[2022-02-19] MEDS: ASPIRIN 325 MG TABLET PO (09:45)
[2022-02-19] MEDS: lisinopriL 20 MG TABLET 40 MG PO (09:45)
[2022-02-19] MEDS: CARBIDOPA-LEVODOPA 25/100 TABLET 1 EACH PO ×3 (09:46→20:26)
[2022-02-19] MEDS: AMLODIPINE 5 MG TABLET 10 MG PO (09:46)
[2022-02-19] MEDS: MULTIVITAMIN 1 TABLET 1 TAB PO (09:46)
[2022-02-19] MEDS: ACETAMINOPHEN 325 MG TABLET 650 MG PO (09:46)
[2022-02-19] MEDS: DOCUSATE 100 MG CAPSULE PO ×2 (09:47→20:27)
[2022-02-19] MEDS: DORZOLAMIDE/TIMOLOL OPHTH 10 ML 1 DROPS EYE-RIGHT ×2 (09:47→20:27)
[2022-02-19] MEDS: NIACIN 500 MG TABLET 250 MG PO ×2 (09:48→20:27)
[2022-02-19] MEDS: LATANOPROST 0.005% OPHTH 2.5 ML 1 DROPS EYE-BOTH ×2 (09:48→20:27)
[2022-02-19] MEDS: SODIUM CHLORIDE 0.9% 1,000 ML 100 ML IV (10:55)
[2022-02-19 11:00] VITALS: BP 115/62; PULSE 82; RESP 19; TEMP 36.9; O2SAT 98
--- NOTE | 2022-02-19 12:47 | CM.DANOTE ---
Addendum entered by IZABEL Anderson 02/19/22 16:02: ADD: Per PT/OT, pt was able to participate in therapy today and was mostly SBA for mobility and recommending home with spouse assist. BF Original Note: Patient is a 77 yo male who was admitted on 02/18/22 for Weakness/COVID. Pt has [facility] and [facility] for insurance and his PCP is Dr. Kike Washburn. EMR was reviewed. Per MD, pt with hx of Parkinson's and his Neurologist is Dr. Mccoy and pt admitted for COVID+ and weakness. Due to pt being on COVID precautions, SW attempted to call pt in room with no answer. SW attempted to call his spouse Calderon and left msg. PT/OT ordered and pending to confirm if pt will be safe for return home and r/o HH and MD anticipates pt will likely improve and not require SNF but SW to follow for eval and recommendations. Pt COVID vaccinated but no boosters. Plan: SW to follow closely for PT/OT eval and recommendations towards ongoing attempts at discharge planning and needs. IZABEL Anderson Discharge Planning/Care Management Advanced directive, confirm from FAMILY Start: 02/18/22 14:09 Freq: Q24H Status: Active Protocol: Document 02/18/22 13:35 BR (Rec: 02/18/22 14:12 BR [id number]) Advance Directive, confirm on record Time 13:35 Person contacted Patient Copy received No CM Discharge Assessment Start: 02/19/22 12:45 Freq: Status: Active Protocol: Document 02/19/22 12:45 BF (Rec: 02/19/22 12:47 BF [id number]) Discharge Planning Assessment Assigned Glaze Grinder IZABEL Amin DPOA/Assigned Designee Name spouse Caldreon Gracia Contact Information [phone] Advance Directives? Yes Advance Directives on File No History Provided By Patient,Medical Record Has Patient been admitted in last 30 No days? Prior Living Arrangements House Household Members spouse Type of transporation used prior to Drives own vehicle admit Independent with ADL's Yes Is patient alert and oriented? Yes Needs Assistance With Home Chores / Shopping Caregiver for Another No DME Already Rented / Owned FWW / Walker Patient/Family Preference Home with Home Health Comment r/o HH pending PT/OT eval and recommendations Barriers to Discharge No Comment COVID+ Discharge Plan Home with Home Health Community Services Physical Therapy,Occupational Therapy Transportation Arrangement Likely spouse can transport if safe for home Additional Comment Pending PT/OT eval and recommendations Review Status In Process Please Provide Date Initial DC 02/19/22 Assessment Was Performed Next Review Type Continued Stay Review
[2022-02-19] MEDS: POTASSIUM CHLORIDE 20 MEQ TAB 40 MEQ PO (13:12)
--- NOTE | 2022-02-19 14:43 | OT.IP.EVAL ---
Current Diagnoses COVID-19 (02/18/22) Past Medical History (Last Reviewed 02/18/22 @ 15:09 by Amber Fraga MD) Erectile dysfunction (11/11/12) History of renal calculi (04/10/11) Hyperlipidemia Hypertension Parkinsonism Surgical History (Last Reviewed 02/18/22 @ 15:09 by Amber Fraga MD) Status post rotator cuff repair (04/26/17) Occupational Therapy Inpatient Evaluation/Re-Eval M1 PT/OT-IP Prior Functional Status Start: 02/19/22 14:01 Freq: NEEDED Status: Active Protocol: Document 02/19/22 15:16 CGR (Rec: 02/19/22 15:30 CGR [id number]) Medical Review Prior Functional Status Medical History Reviewed Yes Communication Pt is an effective verbal communicator. Mobility and Gait Pt was MOD I with SPC at baseline. States he falls regularly, full falls to the ground about once a week. Activities of Daily Living and IADL's Pt states he is IND with all ADLs Social History Household Members spouse Living Arrangements House Number of Floors (Floors) Two Floors Number of Stairs To Enter/Railing? Pt stays on the main level. 3 steps to enter with a rail. 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 M1 PT/OT-IP Prior Functional Status Start: 02/19/22 15:16 Freq: NEEDED Status: Active Protocol: Document 02/19/22 15:16 CGR (Rec: 02/19/22 15:30 CGR [id number]) Medical Review Prior Functional Status Medical History Reviewed Yes Communication Pt is an effective verbal communicator. Mobility and Gait Pt was MOD I with SPC at baseline. States he falls regularly, full falls to the ground about once a week. Activities of Daily Living and IADL's Pt states he is IND with all ADLs Social History Household Members spouse Living Arrangements House Number of Floors (Floors) Two Floors Number of Stairs To Enter/Railing? Pt stays on the main level. 3 steps to enter with a rail. 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 M2 OT-IP Current Condition Start: 02/19/22 15:16 Freq: Status: Active Protocol: Document 02/19/22 15:16 CGR (Rec: 02/19/22 15:30 CGR [id number]) Occupational Therapy Current Condition Current Condition Evaluation Date 02/19/22 Treatment Diagnosis weakness and covid Diagnosis Onset Date 02/18/22 M3 OT- IP Subjective and Pain Start: 02/19/22 15:16 Freq: Status: Active Protocol: Document 02/19/22 15:16 CGR (Rec: 02/19/22 15:30 CGR [id number]) OT- Subjective Occupational Therapy Visit Type Type Initial Evaluation Visit Start Time 14:14 Visit Stop Time 14:43 Total Visit Minutes 29 Notes Co-treat with P.t. d/t concern for low energy. OT Pain Assessment Pain When Pain Assessed At Rest Pain Present Pain Present Denied Pain M4 OT- IP ADL's Start: 02/19/22 15:16 Freq: Status: Active Protocol: Document 02/19/22 15:16 CGR (Rec: 02/19/22 15:30 CGR [id number]) OT [id number] Comments OT Self-Feeding Comments not meal time OT ADL-Grooming General Evaluation Grooming Ability Standby Assistance Areas Needing Assistance Face Washing Comments OT Grooming Comments standing at sink OT ADL-Oral Care General Eval Oral Care Ability Standby Assistance Comments Oral Care Comments standing at sink OT ADL-Dressing Comments OT Dressing Comments not performed OT ADL-Toileting General Evaluation Toileting Ability Independent Comments OT Toileting Comments with urinal at bedside and then again seated on toilet OT ADL-Bathing Comments OT Bathing Comments not performed M5 OT- IP IADL's Start: 02/19/22 15:16 Freq: Status: Active Protocol: Document 02/19/22 15:16 CGR (Rec: 02/19/22 15:30 CGR [id number]) OT-Instrumental Activities of Daily Living Deficits IADL Deficits Identified No Deficits Home Safety Awareness Awareness of Need for Assistance at Home Good Awareness Ability to Problem Solve Emergency Able to Problem Solve Situations Medication Management Medication Management No Deficits Identified Money Management Money Management No Deficits Identified Meal Preparation Meal Preparation Caregiver Provides Assist Staffing Director Staffing Director Caregiver Provides Assist Driving Driving Comments Pt is an active m48/m60 tank driver M6 OT- IP Functional Cognition Start: 02/19/22 15:16 Freq: Status: Active Protocol: Document 02/19/22 15:16 CGR (Rec: 02/19/22 15:30 CGR [id number]) Cognitive Factors Limiting Selfcare Function Cognitive Ability Level of Alertness Alert Patient Orientation Name,Age,Birthday,Year,Day of Week,Place,Situation Attention Span Ability Capable of Focused Attention, Capable of Sustained Attention Cognitive Comments Cognitive Assessment Comments Pt appears with good cognition but was unable to state the month (said November) or the date. This is concerning given that pt is still writing contracts [employer] as a pallet stone positioner. Pt would benefit from a formal cog assessment to have on file. OT- Vision and Hearing OT- Hearing Assessment OT- Hearing Assessment WFL OT- Vision Assessment Visual Acuity Glasses All The Time Visual Attentiveness WFL Occular Pursuits WFL Visual Convergence WFL M7 OT- IP Mobility and Balance Start: 02/19/22 15:16 Freq: Status: Active Protocol: Document 02/19/22 15:16 CGR (Rec: 02/19/22 15:30 CGR [id number]) OT- Bed Mobility Assessment Supine to Sit Supine to Sit Assist Minimal Assistance Scooting Scooting to Edge of Bed Standby Assistance OT-Transfer Assessment Sit to and From Stand Sit to and from Stand Standby Assistance Transfers Transfer Ability Standby Assistance Technique Transfer Destination Bed,Chair,Toilet Transfer Technique Stand Step Pivot Devices Transfer Assistive Devices None OT- Balance Assessment Sitting Balance and Reactions Static Sitting Balance Ability Good Dynamic Sitting Balance Ability Good M8 OT- IP Objective Assessments Start: 02/19/22 15:16 Freq: Status: Active Protocol: Document 02/19/22 15:16 CGR (Rec: 02/19/22 15:30 CGR [id number]) OT Gross Range of Motion Upper Extremity Range of Motion Assessment Within Functional Limits OT Strength Upper Extremity Strength Assessment Within Functional Limits Comments Strength Comments 4+/5 except R shld 4-/5 OT- Coordination Assessment Upper Extremity Finger to Nose Test Within Functional Limits Finger Tapping Test Within Functional Limits OT-Muscle Tone Assessment Muscle Tone WNL Yes OT Sensation Assessment Edema Edema Absent M9 OT- IP Assessment and Plan Start: 02/19/22 15:16 Freq: Status: Active Protocol: Document 02/19/22 15:16 CGR (Rec: 02/19/22 15:30 CGR [id number]) OT Summary Assessment and Plan Potential Rehabilitation Potential Good Analytic Complexity at Evaluation Low Summary OT Impairments Functional Cognition Progress Towards Goals Slow Progress due to Medical Issues Assessment Summary Pt presents as a low complexity evaluation s/p admit for weakness with covid. Pt presents physically at or near his baseline but with a concern for his cognition given his inability to state the month (he said November after a long time of thinking about it) and was also unable to state the date. Pt would benefit from formal cog assessment. Goals OT-Other Goals Pt will complete formal cog assessment. Days to Meet Goals 1 Frequency of Treatment Frequency Of Treatment Once a Day Treatment Plan OT Treatment Plan Functional Cognition Training, Patient/Family Education, Discharge Planning Other Treatment Recommendations and Next cog assessment Treatment Focus Discharge Recommendations OT Discharge Recommendations Home with Assistance Transportation Needs at Discharge Private Vehicle
--- NOTE | 2022-02-19 14:43 | PT.IIE ---
Current Diagnoses COVID-19 (02/18/22) Surgical History (Last Reviewed 02/18/22 @ 15:09 by Amber Fraga MD) Status post rotator cuff repair (04/26/17) Medical History (Last Reviewed 02/18/22 @ 15:09 by Amber Fraga MD) Erectile dysfunction (11/11/12) History of renal calculi (04/10/11) Hyperlipidemia Hypertension Parkinsonism Physical Therapy Inpatient Evaluation/Re-Eval M1 PT/OT-IP Prior Functional Status Start: 02/19/22 14:01 Freq: NEEDED Status: Active Protocol: Document 02/19/22 15:16 CGR (Rec: 02/19/22 15:30 CGR [id number]) Medical Review Prior Functional Status Medical History Reviewed Yes Communication Pt is an effective verbal communicator. Mobility and Gait Pt was MOD I with SPC at baseline. States he falls regularly, full falls to the ground about once a week. Activities of Daily Living and IADL's Pt states he is IND with all ADLs Social History Household Members spouse Living Arrangements House Number of Floors (Floors) Two Floors Number of Stairs To Enter/Railing? Pt stays on the main level. 3 steps to enter with a rail. 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 M1 PT/OT-IP Prior Functional Status Start: 02/19/22 15:16 Freq: NEEDED Status: Active Protocol: Document 02/19/22 15:16 CGR (Rec: 02/19/22 15:30 CGR [id number]) Medical Review Prior Functional Status Medical History Reviewed Yes Communication Pt is an effective verbal communicator. Mobility and Gait Pt was MOD I with SPC at baseline. States he falls regularly, full falls to the ground about once a week. Activities of Daily Living and IADL's Pt states he is IND with all ADLs Social History Household Members spouse Living Arrangements House Number of Floors (Floors) Two Floors Number of Stairs To Enter/Railing? Pt stays on the main level. 3 steps to enter with a rail. 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 M2 PT-IP Current Condition Start: 02/19/22 14:01 Freq: NEEDED Status: Active Protocol: Document 02/19/22 14:43 AW (Rec: 02/19/22 15:36 AW [id number]) Physical Therapy Current Condition Current Condition Evaluation Date 02/19/22 Treatment Diagnosis weakness, COVID (+) Onset Date 02/17/22 M3 PT-IP Subjective Start: 02/19/22 14:01 Freq: NEEDED Status: Active Protocol: Document 02/19/22 14:43 AW (Rec: 02/19/22 15:36 AW [id number]) Subjective Physical Therapy Visit Type Type Initial Evaluation Visit Start Time 14:14 Visit Stop Time 14:43 Notes Co-eval with OT due to anticipated need for high level of pt fatigue. Physical Therapy Visit Comments Patient Comments Pt is willing to participate with PT Patient Goals Return home with spouse support. Therapy Pain Assessment Pain When Pain Assessed During Mobility Pain Present Pain Present Pain Reported Location left knee Scale Used not quantified M4 PT-IP Mobility and Gait Start: 02/19/22 14:01 Freq: NEEDED Status: Active Protocol: Document 02/19/22 14:43 AW (Rec: 02/19/22 15:36 AW [id number]) PT-Bed Mobility Assessment Supine to Sit Supine to Sit Minimal Assistance,1 Person Assistance,Bedrails Scooting Scooting to Edge of Bed Standby Assistance PT-Transfer Assessment Sit to and From Stand Sit to and from Stand Standby Assistance Equipment Transfer Assistive Device None,Gait Belt Orthotic/Prosthetic Devices or Brace: No Transfers Transfer Destination Chair,Toilet Transfer Technique pt ambulated without AD Transfer Ability Level of Assist Standby Assistance,Contact Guard Assistance Comments Mobility Comments Pt was lying in bed as PT arrived. SpO2 high 90's on room air and pt was in no apparent distress. He needed min A to sit up on the edge of the bed. He sat several minutes attempting to use the urinal but was unable to void. He stood SBA and walked to the toilet, transferring SBA. After using the toilet, he stood and walked to the sink SBA. He stood at the sink ~5 minutes with good balance as he completed grooming. He then walked around the room ~30 feet before returning to the chair. He completed sit <> stand twice and was able without UE support on second rep. SpO2 was stable. Pt was left in the chair with call light in reach. Gait Assessment Gait Gait Assistance Required: Standby Assistance Distance (Feet) 30 Assistive Devices Assistive Device None,Gait Belt Orthotic/Prosthetic Devices or Brace: No Gait Deviations General Gait Pattern Antalgic,Decreased Stride Length,Decreased Feet Clearance,Festinating Factors Limiting Gait Function Factors Limiting Gait Function Decreased Sensation,Poor Safety Awareness Comments Gait Comments Gait is generally steady in open spaces but characterized by festinating as pt approaches transfer destinations (chair, toilet). He benefits from cues to keep steps longer during the approach and to make full turn away from sitting surface before beginning descent. Stair Climbing Assessment Comments Stair Climbing Comments Not assessed. PT-Balance Assessment Sitting Balance and Reactions Static Sitting Balance Ability Good Dynamic Sitting Balance Ability Good Standing Balance and Reactions Static Standing Balance Ability Good Dynamic Standing Balance Ability Fair Device Used none M5 PT-IP Objective Assessments Start: 02/19/22 14:01 Freq: NEEDED Status: Active Protocol: Document 02/19/22 14:43 AW (Rec: 02/19/22 15:36 AW [id number]) Orientation Orientation/Cognition Level of Alertness Alert Orientation Name,Year,Place,Situation Safety Awareness Decreased Safety Awareness Comments Pt was oriented to the year but not to the month (or season). Gross Range of Motion Lower Extremity ROM Assessment Within Functional Limits Strength Lower Extremity Strength Assessment Within Functional Limits Hip 4+/5 Knee 5/5 R; 4+/5 L Ankle 5/5 DF; PF not tested Sensation Assessment Sensation Gross Sensation WNL Muscle Tone Muscle Tone WNL No Muscle Tone Location Bilateral Upper Extremity Severity of Tone Moderate Comments Muscle Tone Comments Pill-rolling tremor BUE. M6 PT-IP Treatment Start: 02/19/22 14:01 Freq: NEEDED Status: Active Protocol: Document 02/19/22 14:43 AW (Rec: 02/19/22 15:36 AW [id number]) Physical Therapy Treatment Education Education Provided Safety M7 PT-IP Assessment and Plan Start: 02/19/22 14:01 Freq: NEEDED Status: Active Protocol: Document 02/19/22 14:43 AW (Rec: 02/19/22 15:36 AW [id number]) PT Summary Assessment and Plan Potential Rehabilitation Potential Good Status of Condition at Evaluation Evolving Summary Impairments Pain,Balance,Sensation, Cognition,Gait,Activity Tolerance Assessment Summary Bhavesh is a 77 yo man with Parkinson's disease who is admitted with weakness secondary to active COVID infection. PLOF: Pt is independent with household mobility and uses a quad cane in busy environments. His mobility is distanc-limited by left knee pain. He falls regularly with reported daily near-falls and weekly falls to the ground. CLOF: Pt requiring min assist for bed mobility and SBA for short distance ambulation and transfers in the hospital room . He tends to festinate as he approaches transfer destinations. Pt is appropriate for continued acute PT to work toward baseline mobility and safe discharge home with spouse assist. Goals Bed Mobility Goal Independent Transfer Goal Independent Gait Goal Independent Gait Distance 150 Other Goals - up/down 3 steps with unilateral rail Days to Meet Goals 3 Frequency of Treatment Frequency Of Treatment Once a Day Treatment Plan Physical Therapy Treatment Plan Bed Mobility Training,Transfer Training,Gait Training, Therapeutic Exercise,Balance Retraining,Discharge Planning, Hot or Cold Pack,Neuromuscular Re-ed Precautions Other Precautions falls Recommendations To Nursing Amount of Assist Needed 1 Person Assist Discharge Recommendations PT Discharge Recommendations Home with Assistance Transportation Needs at Discharge Private Vehicle
[2022-02-19 15:00] VITALS: BP 116/68; PULSE 80; RESP 18; TEMP 36.9; O2SAT 97
[2022-02-19 19:00] VITALS: BP 131/73; PULSE 78; RESP 16; TEMP 36.8; O2SAT 96
[2022-02-19 20:05] VITALS: BP 131/73; PULSE 78; RESP 16; TEMP 37.5; O2SAT 96
[2022-02-19] MEDS: ATORVASTATIN 20 MG TABLET PO (20:26)
[2022-02-19] MEDS: GABAPENTIN 300 MG CAPSULE PO (20:26)
[2022-02-20] VITALS (7 sets, daily range): BP systolic 105–154; BP diastolic 62–81; PULSE 69–85; RESP 15–18; TEMP 36.5–37.3; O2SAT 95–98
[2022-02-20] MEDS: ACETAMINOPHEN 325 MG TABLET 650 MG PO ×2 (01:33→09:21)
[2022-02-20 07:50] LABS: Magnesium 1.6 mg/dL (1.6-2.3)
[2022-02-20 07:52] LABS: BUN Creatinine Ratio 14.5 (6-22); Blood Urea Nitrogen 9 mg/dL (9-20); Calcium 7.9 mg/dL (8.4-10.2); Carbon Dioxide 27 mmol/L (22-32); Chloride 104 mmol/L (98-107); Estimated Glomerular Filt Rate > 60 mL/min (>60); Glucose 100 mg/dL (80-110); HEMOLYSIS < 15 (0-50); Potassium 3.3 mmol/L (3.4-5.1); Sodium 137 mmol/L (137-145)
--- NOTE | 2022-02-20 08:18 | PM.PN.1 ---
Subjective Subjective Date Patient Seen: 02/20/22 Time Patient Seen: 07:59 Interval history: Patient is feeling better. Has bit more of a headache and his voice is struggling a bit. He has a bit more strength in his legs able to help with transfers up to the bedside chair where I find him this morning. Appetite is still diminished but eating okay No other real complaints or problems Lab work done this morning shows mild hypokalemia Exam Vital Signs (past 8 hours): - 02/20/22 01:35 02/20/22 05:00 Temperature 99.1 F 98.4 F Pulse Rate 85 79 Respiratory Rate 16 15 Blood Pressure 154/81 H 135/62 Pulse Oximetry 95 95 Oxygen Flow Rate 0 0 Oxygen Delivery Method Room Air Oxygen Flow Rate 0 Objective Labs Result Diagrams: 02/19/22 06:38 02/20/22 06:25 Labs: Laboratory Results - last 24 hr 02/20/22 02/20/22 06:25 06:25 Sodium 137 Potassium 3.3 L Chloride 104 Carbon Dioxide 27 BUN 9 Creatinine 0.62 L Estimated GFR > 60 BUN/Creatinine Ratio 14.5 Glucose 100 Calcium 7.9 L Magnesium 1.6 PFSH Medical History Erectile dysfunction (11/11/12) History of renal calculi (04/10/11) Hyperlipidemia Hypertension Parkinsonism Surgical History Status post rotator cuff repair (04/26/17) Social History household members: spouse Smoking Status: Never smoker alcohol intake: current Assessment & Plan Assessment & Plan narrative: 1. Global weakness with elevated CPK and muscle weakness. All likely secondary to his viral infection most likely COVID. Patient is symptomatically is improved as far as weakness with some more minor typical kind of viral symptoms. 2. COVID-19 infection-no evidence of significant pneumonitis at this point. Continue with respiratory precautions for staff and other patients in the hospital 3. Parkinson's-continue patient's usual meds 4. Hypertension-continue patient's usual meds 5. Hypokalemia-will continue replace orally. Overall patient is stable anyway. Hopefully with time and supportive care he will improve and be able to return home in the next 24-48 hours. Patient is improving and I do not think there is a need for skilled therapies at this point Note: Greater than 20 minutes total time was spent on day of service, evaluating the patient on the floor, including examining the patient, discussing clinical course with clinical and nursing staff, reviewing clinical course in the computer, preparing documentation and writing orders for continued management of care, discussing status with family as appropriate, reviewing plans for the next 24 hours with both patient/family and nursing staff as appropriate. Time Spent With Patient Critical Care time: I spent a total of [] minutes of critical care time on this patient's care today; this time is exclusive of procedural time. Quality VTE Deep Vein Thrombosis/Pulmonary Embolism Present on Admission: No
[2022-02-20 09:05] LABS: Creatine Kinase 4938 U/L (55-170)
[2022-02-20] MEDS: ENOXAPARIN 40 MG/0.4 ML SYRINGE SUBCUT (09:18)
[2022-02-20] MEDS: NIACIN 500 MG TABLET 250 MG PO ×2 (09:18→19:49)
[2022-02-20] MEDS: lisinopriL 20 MG TABLET 40 MG PO (09:19)
[2022-02-20] MEDS: AMLODIPINE 5 MG TABLET 10 MG PO (09:19)
[2022-02-20] MEDS: POTASSIUM CHLORIDE 20 MEQ TAB 40 MEQ PO ×2 (09:19→16:43)
[2022-02-20] MEDS: DOCUSATE 100 MG CAPSULE PO ×2 (09:19→19:49)
[2022-02-20] MEDS: CARBIDOPA-LEVODOPA 25/100 TABLET 1 EACH PO ×3 (09:19→19:49)
[2022-02-20] MEDS: MULTIVITAMIN 1 TABLET 1 TAB PO (09:19)
[2022-02-20] MEDS: ASPIRIN 325 MG TABLET PO (09:19)
[2022-02-20] MEDS: hydroCHLOROthiazide 25 MG TABLET PO (09:19)
[2022-02-20] MEDS: LATANOPROST 0.005% OPHTH 2.5 ML 1 DROPS EYE-BOTH ×2 (09:20→19:49)
[2022-02-20] MEDS: DORZOLAMIDE/TIMOLOL OPHTH 10 ML 1 DROPS EYE-RIGHT ×2 (09:20→19:49)
[2022-02-20] MEDS: BRIMONIDINE 0.2% OPHTH 5 ML 1 DROPS EYE-BOTH (09:20)
[2022-02-20] MEDS: SODIUM CHLORIDE 0.9% 1,000 ML 100 ML IV ×2 (09:24→19:04)
[2022-02-20] MEDS: MAGNESIUM CHLORIDE 64 MG TABLET 128 MG PO (10:59)
--- NOTE | 2022-02-20 14:27 | PT.IPTN ---
Current Diagnoses COVID-19 (02/18/22) Physical Therapy Treatment Note M2 PT-IP Current Condition Start: 02/19/22 14:01 Freq: NEEDED Status: Active Protocol: Document 02/19/22 14:43 AW (Rec: 02/19/22 15:36 AW [id number]) Physical Therapy Current Condition Current Condition Evaluation Date 02/19/22 Treatment Diagnosis weakness, COVID (+) Onset Date 02/17/22 M3 PT-IP Subjective Start: 02/19/22 14:01 Freq: NEEDED Status: Active Protocol: Document 02/20/22 13:55 KS (Rec: 02/20/22 15:08 KS [id number]) Subjective Physical Therapy Visit Type Type Treatment Note Visit Start Time 13:55 Visit Stop Time 14:27 Total Visit Minutes 32 Number of BOX BENDER Visits 1 Physical Therapy Visit Comments Patient Comments Pt is willing to participate with PT Patient Goals Return home with spouse support. Therapy Pain Assessment Location left knee Scale Used not quantified M4 PT-IP Mobility and Gait Start: 02/19/22 14:01 Freq: NEEDED Status: Active Protocol: Document 02/20/22 13:55 KS (Rec: 02/20/22 15:08 KS [id number]) PT-Bed Mobility Assessment Scooting Scooting to Edge of Bed Standby Assistance PT-Transfer Assessment Sit to and From Stand Sit to and from Stand Standby Assistance Equipment Transfer Assistive Device None,Gait Belt Orthotic/Prosthetic Devices or Brace: No Transfers Transfer Destination Chair Transfer Technique pt ambulated without AD Transfer Ability Level of Assist Contact Guard Assistance, Minimal Assistance,1 Person Assistance Comments Mobility Comments Pt in chair upon arrival and agreeable to ambulate. Offers that he feels his strength is not at baseline, but getting better. Pt SBA for sit<>stand w/o AD. He stood and maintained standing balance ~5 min during discussion about home safety and DME. He then ambulated ~50 ft in room w/o AD and mostly CGA, however did have 1x lateral LOB requiring Min A to recover. Pt states he normally furniture surfs at home but would be open to acquiring FWW from [employer] and will have call. Gait Assessment Gait Gait Assistance Required: Contact Guard Assist,Minimum Assistance,1 Person Assist Distance (Feet) 50 Assistive Devices Assistive Device None,Gait Belt Orthotic/Prosthetic Devices or Brace: No Gait Deviations General Gait Pattern Antalgic,Decreased Stride Length,Decreased Feet Clearance,Festinating Factors Limiting Gait Function Factors Limiting Gait Function Decreased Sensation,Poor Safety Awareness Comments Gait Comments Gait is generally steady in open spaces but characterized by festinating as pt approaches transfer destinations (chair, toilet). He benefits from cues to keep steps longer during the approach and to make full turn away from sitting surface before beginning descent. Stair Climbing Assessment Comments Stair Climbing Comments Not assessed. PT-Balance Assessment Sitting Balance and Reactions Static Sitting Balance Ability Good Dynamic Sitting Balance Ability Good Standing Balance and Reactions Static Standing Balance Ability Fair Dynamic Standing Balance Ability Fair Device Used none M5 PT-IP Objective Assessments Start: 02/19/22 14:01 Freq: NEEDED Status: Active Protocol: Document 02/19/22 14:43 AW (Rec: 02/19/22 15:36 AW [id number]) Orientation Orientation/Cognition Level of Alertness Alert Orientation Name,Year,Place,Situation Safety Awareness Decreased Safety Awareness Comments Pt was oriented to the year but not to the month (or season). Gross Range of Motion Lower Extremity ROM Assessment Within Functional Limits Strength Lower Extremity Strength Assessment Within Functional Limits Hip 4+/5 Knee 5/5 R; 4+/5 L Ankle 5/5 DF; PF not tested Sensation Assessment Sensation Gross Sensation WNL Muscle Tone Muscle Tone WNL No Muscle Tone Location Bilateral Upper Extremity Severity of Tone Moderate Comments Muscle Tone Comments Pill-rolling tremor BUE. M6 PT-IP Treatment Start: 02/19/22 14:01 Freq: NEEDED Status: Active Protocol: Document 02/20/22 13:55 KS (Rec: 02/20/22 15:08 KS [id number]) Physical Therapy Treatment Education Education Provided Safety M7 PT-IP Assessment and Plan Start: 02/19/22 14:01 Freq: NEEDED Status: Active Protocol: Document 02/20/22 13:55 KS (Rec: 02/20/22 15:08 KS [id number]) PT Summary Assessment and Plan Potential Rehabilitation Potential Good Summary Impairments Pain,Balance,Sensation, Cognition,Gait,Activity Tolerance Progress Towards Goals Slow Progress due to Medical Issues,Slow Progress due to Activity Tolerance Assessment Summary Pt limited by weakness and PD - SBA to CGA for transfers and CGA to Min A for ambulation w /o AD. Pt ambulated 50 ft but did have 1x lateral LOB requiring Min A to recover. He uses furniture for balance at baseline when ambulating around home however falls frequently. He will likely be safe to return home w/ assistance but would benefit from FWW dispensed and HHPT to improve balance, coordination , and functional mobility. Goals Bed Mobility Goal Independent Transfer Goal Independent Gait Goal Independent Gait Distance 150 Other Goals - up/down 3 steps with unilateral rail Days to Meet Goals 3 Frequency of Treatment Frequency Of Treatment Once a Day Treatment Plan Physical Therapy Treatment Plan Bed Mobility Training,Transfer Training,Gait Training, Therapeutic Exercise,Balance Retraining,Discharge Planning, Hot or Cold Pack,Neuromuscular Re-ed Precautions Other Precautions falls Recommendations To Nursing Amount of Assist Needed 1 Person Assist Discharge Recommendations PT Discharge Recommendations Home with Assistance,Home Health Transportation Needs at Discharge Private Vehicle
[2022-02-20] MEDS: ATORVASTATIN 20 MG TABLET PO (19:49)
[2022-02-20] MEDS: GABAPENTIN 300 MG CAPSULE PO (19:49)
[2022-02-21 01:00] VITALS: BP 149/78; PULSE 78; RESP 18; TEMP 36.9; O2SAT 96
[2022-02-21 05:00] VITALS: BP 139/68; PULSE 67; RESP 20; TEMP 37.2; O2SAT 97
[2022-02-21] MEDS: SODIUM CHLORIDE 0.9% 1,000 ML 100 ML IV (05:48)
--- NOTE | 2022-02-21 06:13 | PM.DS.1 ---
History of Present Illness History of Present Illness Date Patient Seen: 02/21/22 Time Patient Seen: 06:14 Chief complaint: weakness, covid positive Narrative: Is a 77-year-old male who presents to emergency department for complaints of a 24 hour history of illness.? He started feeling poorly yesterday and took a COVID test which was negative and then in the middle the night had severe myalgias and was unable to get to the bathroom.? It took him about 30 minutes to crawl to the bathroom.? He presented to the emergency room was found to be COVID positive.? Otherwise his exam was unremarkable and chest x-ray was normal and he was really having minimal respiratory symptoms of illness.? He was admitted to the hospital for further treatment and diagnostics.? He complains of a sore throat mild cough but no shortness of breath and no chest pain and just severe global weakness which is affecting his ability to ambulate and he has underlying Parkinson's disease.? He is vaccinated but has had no COVID boosters.? He is never had COVID-19 illness per his knowledge.? His PCP is Dr. Dunbar.? His neurologist is Dr. Mccoy at [facility]. Prior to this patient had been in his usual state of health.? He is not had any significant progression of his Parkinson's and was seen by his neurologist in November of 2021.? Last visit with Dr. Dunbar was in July of 2021 to follow-up on his chronic medical problems of hypertension and hyperlipidemia. Patient denies any urinary symptoms.? He denies any abdominal pain or black tarry stools.? He denies any fever.? He denies any rash.? Denies any headache.? Denies any neurologic symptoms.? Denies any chest pain or shortness of breath or PND or orthopnea. {from Dr Fraga's H&P 02/18/22} Discharge Providers Provider Date of admission: 02/18/22 12:56 Discharge Date: 02/21/22 Primary care physician: Kike Dunbar MD Consults: 02/19/22 11:59 Consult to Occupational Therapy Evaluate & Treat Comment: Physician Instructions: Evaluate and treat Consult to Physical Therapy Evaluate & Treat Comment: Physician Instructions: Evaluate and Treat Discharge provider: Kike Dunbar MD Summary Hospital Course Discharge Diagnosis: 1. COVID-19 infection 2. RSV infection 3. Rhabdomyolysis 4. Myalgia with muscle weakness 5. Parkinson's disease 6. Hypertension 7. Hypokalemia Hospital Course: Patient presented to the ER as above. He was clearly experiencing significant generalized muscle weakness likely secondary to viral effect from most likely the COVID 19 infection. He also demonstrated so rhabdomyolysis with CPK peaking near 10,000 but improving significantly over time. Renal function was not affected Patient over the course of his hospitalization improved in his muscle strength and ability to ambulate independently. On day of discharge he was up and around independently ambulating in his room. Had developed some more true upper respiratory kind of symptoms including a bit of laryngitis and nasal congestion likely secondary to 1 of his to viral infections Patient was felt to be back to baseline and was ready for discharge Patient also was hypokalemic likely secondary to mild dehydration as well as his ongoing use of thiazide diuretic for his hypertension. Patient has potassium replaced orally and will continue as an outpatient on oral potassium replacement as well with close follow-up with his PCP Status at Discharge Cognitive/behavioral status at discharge: at baseline, oriented Functional status at discharge: independent ambulation Overall status at discharge: patient is progressing back to baseline Exam Vital Signs (past 8 hours): - 02/21/22 01:00 02/21/22 05:00 Temperature 98.5 F 98.9 F Pulse Rate 78 67 Respiratory Rate 18 20 Blood Pressure 149/78 H 139/68 Pulse Oximetry 96 97 Oxygen Flow Rate 0 0 Oxygen Delivery Method Room Air Oxygen Flow Rate 0 Objective Labs Result Diagrams: 02/19/22 06:38 02/20/22 06:25 Labs: Laboratory Results - last 24 hr 02/20/22 02/20/22 02/20/22 06:25 06:25 08:20 Sodium 137 Potassium 3.3 L Chloride 104 Carbon Dioxide 27 BUN 9 Creatinine 0.62 L Estimated GFR > 60 BUN/Creatinine Ratio 14.5 Glucose 100 Calcium 7.9 L Magnesium 1.6 Total Creatine Kinase 4938 H D [facility] Medical History Erectile dysfunction (11/11/12) History of renal calculi (04/10/11) Hyperlipidemia Hypertension Parkinsonism Surgical History Status post rotator cuff repair (04/26/17) Social History household members: spouse Smoking Status: Never smoker alcohol intake: current Discharge Plan Discharge Plan Patient Disposition: Home Discharge orders & Medications Prescriptions: New potassium chloride 20 mEq tablet extended release 20 meq PO DAILY Qty: 90 3RF magnesium oxide 500 mg capsule 500 mg PO DAILY Qty: 90 3RF Continued MULTIVITAMIN (#MULTIPLE VITAMINS) 1 cap PO Q DAY Qty: 0 Niacin (#NIACIN TD) 250 mg PO BID Qty: 0 sildenafil (pulm.hypertension) 20 mg tablet See Rx Instructions PO ONCE PRN (Reason: sexual activity) Qty: 30 4RF Dose Instruction: PO ONCE PRN; administer doses at least 4-6 hours apart Rx Instructions: Take 2-5 tabs together up to once daily for sexual activity, max 5 tabs per 24 hours carbidopa-levodopa 25-100 mg tablet 1 tab PO TID dorzolamide-timolol 22.3-6.8 mg/mL drops 1 - 2 drp EYE-RIGHT BID Label Comments: INSTILL 1 DROP INTO THE RIGHT EYE TWICE DAILY INSTRUCTED BY DOCTOR. latanoprost 0.005 % drops 1 drp ophthalmic (eye) BID Rx Instructions: r eye brimonidine 0.2 % drops 1 drp EYE-BOTH DAILY Naltrexone 3 mg 1 tab PO BEDTIME rosuvastatin 10 mg tablet 10 mg PO DAILY Qty: 90 3RF amlodipine 10 mg tablet 10 mg PO DAILY Qty: 90 3RF hydrochlorothiazide 25 mg tablet 25 mg PO DAILY Qty: 90 3RF benazepril 40 mg tablet 40 mg PO DAILY Qty: 90 3RF gabapentin 300 mg capsule 300 mg PO BEDTIME Qty: 90 3RF aspirin 325 mg tablet 325 mg PO DAILY melatonin 3 mg Tablet 6 mg PO BEDTIME PRN (Reason: Insomnia) Follow up/Referrals: Kike Dunbar MD [Primary Care Provider] - 03/06/22 10:30 am (appt:03/06 @ 10:30 w/Dr dunbar please arrive 15 minutes prior to scheduled appointment time ) Discharge Health Status Multidrug resistant organism: No MDRO Diet/Activity/Treatments Diet: Diet as Tolerated Discharge Data Primary Care Provider: Kike Dunbar Attending Provider: Kike Dunbar Quality VTE Deep Vein Thrombosis/Pulmonary Embolism Present on Admission: No
[2022-02-21 06:38] LABS: Magnesium 1.5 mg/dL (1.6-2.3)
[2022-02-21 09:00] VITALS: BP 160/82; PULSE 66; RESP 17; TEMP 37.2; O2SAT 100
[2022-02-21] MEDS: ACETAMINOPHEN 325 MG TABLET 650 MG PO (09:08)
[2022-02-21] MEDS: POTASSIUM CHLORIDE 20 MEQ TAB 40 MEQ PO (09:08)
[2022-02-21] MEDS: NIACIN 500 MG TABLET 250 MG PO (09:08)
[2022-02-21 09:09] VITALS: BP 160/83; PULSE 67
[2022-02-21] MEDS: AMLODIPINE 5 MG TABLET 10 MG PO (09:09)
[2022-02-21] MEDS: lisinopriL 20 MG TABLET 40 MG PO (09:09)
[2022-02-21] MEDS: ENOXAPARIN 40 MG/0.4 ML SYRINGE SUBCUT (09:09)
[2022-02-21] MEDS: CARBIDOPA-LEVODOPA 25/100 TABLET 1 EACH PO (09:09)
[2022-02-21] MEDS: DOCUSATE 100 MG CAPSULE PO (09:09)
[2022-02-21] MEDS: ASPIRIN 325 MG TABLET PO (09:09)
[2022-02-21] MEDS: hydroCHLOROthiazide 25 MG TABLET PO (09:09)
[2022-02-21] MEDS: MULTIVITAMIN 1 TABLET 1 TAB PO (09:09)
[2022-02-21] MEDS: BRIMONIDINE 0.2% OPHTH 5 ML 1 DROPS EYE-BOTH (09:10)
[2022-02-21] MEDS: LATANOPROST 0.005% OPHTH 2.5 ML 1 DROPS EYE-BOTH (09:10)
[2022-02-21] MEDS: DORZOLAMIDE/TIMOLOL OPHTH 10 ML 1 DROPS EYE-RIGHT (09:10)
[2022-02-21] MEDS: MAGNESIUM CHLORIDE 64 MG TABLET 128 MG PO (11:30)
--- NOTE | 2022-02-21 12:19 | CM.DPC ---
DCP Cont: Pt medically stable for discharge today. [facility] referral made and orders placed. F2F, order, and D/C summary to be faxed. P: Pt to discharge home today via spouse POV. Amanda Gayle RN/DCP
--- NOTE | 2022-02-21 12:34 | OT.IPNOTE ---
Pt already discharged and not able to see for OT today.
== END 2022-02-21 12:15 | disposition home or self-care (01) ==
LOC: ED 08:34 → AC 12:58
PROVIDERS: Admitting Provider Family Medicine; Emergency Provider Emergency Medicine; Family Provider Internal Medicine; PCP Internal Medicine; Referring Provider Emergency Medicine; Visit Provider Internal Medicine
DX: U07.1 COVID-19 (principal); B97.4 Respiratory syncytial virus as the cause of diseases classified elsewhere; E87.6 Hypokalemia; R53.1 Weakness; R77.8 Other specified abnormalities of plasma proteins; I10 Essential (primary) hypertension; E78.5 Hyperlipidemia, unspecified; G20 Parkinson's disease; Z66 Do not resuscitate; M62.82 Rhabdomyolysis
CPT/HCPCS: 36415; 71045; 80048; 80053; 81001; 82550; 82553; 83605; 83735; 83880; 84145; 84484; 85025; 87040; 87633; 93005; 96372; 97116; 97162; 97165; 97530; 97535; 99217; 99225; 99284; G0378; J1650

== ENCOUNTER → 2022-03-08 14:33 | Outpatient (CLI) | payer MEDICARE, OTHER, SELFPAY ==
[2022-02-18 13:14] VITALS: BMI 31.8
[2022-03-08 15:11] LABS: BUN Creatinine Ratio 20.5 (6-22); Blood Urea Nitrogen 17 mg/dL (9-20); Carbon Dioxide 28 mmol/L (22-32); Chloride 101 mmol/L (98-107); Creatine Kinase 65 U/L (55-170); Estimated Glomerular Filt Rate > 60 mL/min (>60); Glucose 100 mg/dL (80-110); HEMOLYSIS < 15 (0-50); Potassium 4.1 mmol/L (3.4-5.1); Sodium 139 mmol/L (137-145)
== END ==
PROVIDERS: Family Provider Internal Medicine; PCP Internal Medicine; Referring Provider Internal Medicine; Visit Provider Internal Medicine
DX: I10 Essential (primary) hypertension (principal); E87.6 Hypokalemia; R53.1 Weakness; M79.10 Myalgia, unspecified site
CPT/HCPCS: 36415; 80048; 82550; 83735

== ENCOUNTER → 2022-09-17 10:54 | Outpatient (CLI) | payer MEDICARE, OTHER, SELFPAY ==
[2022-02-18 13:14] VITALS: BMI 31.8
[2022-09-17 12:43] LABS: Blood Urea Nitrogen 19 mg/dL (9-20); Carbon Dioxide 30 mmol/L (22-32); Chloride 102 mmol/L (98-107); Estimated Glomerular Filt Rate > 60 mL/min (>60); Glucose 99 mg/dL (80-110); HEMOLYSIS < 15 (0-50); Magnesium 1.9 mg/dL (1.6-2.3); Potassium 3.8 mmol/L (3.4-5.1); Sodium 137 mmol/L (137-145)
== END ==
PROVIDERS: Family Provider Internal Medicine; PCP Internal Medicine; Referring Provider Internal Medicine; Visit Provider Internal Medicine
DX: I10 Essential (primary) hypertension (principal); E78.5 Hyperlipidemia, unspecified
CPT/HCPCS: 36415; 80048; 83735

== ENCOUNTER → 2023-09-09 11:11 | Outpatient (CLI) | payer MEDICARE, OTHER, SELFPAY ==
[2022-02-18 13:14] VITALS: BMI 31.8
[2023-09-09 13:33] LABS: Alanine Aminotransferase 17 IU/L (<50); Albumin Globulin Ratio 1.8 (1.0-2.8); Alkaline Phosphatase 80 U/L (38-126); Aspartate Aminotransferase 27 IU/L (17-59); BUN Creatinine Ratio 26.9 (6-22); Bilirubin Total 0.5 mg/dL (0.2-1.3); Blood Urea Nitrogen 21 mg/dL (9-20); Calcium 9.3 mg/dL (8.4-10.2); Carbon Dioxide 30 mmol/L (22-32); Chloride 105 mmol/L (98-107); Cholesterol 199 mg/dL (140-199); Estimated Glomerular Filt Rate > 60 mL/min (>60); Globulin 2.2 g/dL (1.7-4.1); Glucose 106 mg/dL (80-110); HDL Cholesterol 61 mg/dL (40-60); HEMOLYSIS < 15 (0-50); LDL Cholesterol Calculated 117 mg/dL (<100); Potassium 3.8 mmol/L (3.4-5.1); Sodium 138 mmol/L (137-145); Total Protein 6.2 g/dL (6.3-8.2); Triglycerides 106 mg/dL (35-150)
== END ==
LOC: LAB 11:12
PROVIDERS: Family Provider Internal Medicine; PCP Internal Medicine; Referring Provider Internal Medicine; Visit Provider Internal Medicine
DX: I10 Essential (primary) hypertension (principal); E78.5 Hyperlipidemia, unspecified; G20.A1 Parkinson's disease without dyskinesia, without mention of fluctuations
CPT/HCPCS: 36415; 80053; 80061

== ENCOUNTER → 2024-03-25 10:22 | Outpatient (CLI) | payer MEDICARE, OTHER, SELFPAY ==
[2022-02-18 13:14] VITALS: BMI 31.8
[2024-03-25 11:49] LABS: Alanine Aminotransferase 27 IU/L (<50); Albumin 4.1 g/dL (3.5-5.0); Albumin Globulin Ratio 1.7 (1.0-2.8); Alkaline Phosphatase 64 U/L (38-126); Aspartate Aminotransferase 36 IU/L (17-59); Bilirubin Total 0.8 mg/dL (0.2-1.3); Blood Urea Nitrogen 18 mg/dL (9-20); Calcium 9.4 mg/dL (8.4-10.2); Carbon Dioxide 26 mmol/L (22-32); Chloride 105 mmol/L (98-107); Cholesterol 220 mg/dL (140-199); Estimated Glomerular Filt Rate > 60 mL/min (>60); Globulin 2.4 g/dL (1.7-4.1); Glucose 104 mg/dL (80-110); HDL Cholesterol 65 mg/dL (40-60); HEMOLYSIS 94 (0-50); LDL Cholesterol Calculated 138 mg/dL (<100); Potassium 4.4 mmol/L (3.4-5.1); Sodium 137 mmol/L (137-145); Total Protein 6.5 g/dL (6.3-8.2); Triglycerides 84 mg/dL (35-150)
== END ==
PROVIDERS: Family Provider Internal Medicine; PCP Internal Medicine; Referring Provider Internal Medicine; Visit Provider Internal Medicine
DX: I10 Essential (primary) hypertension (principal); E78.5 Hyperlipidemia, unspecified; G20.A1 Parkinson's disease without dyskinesia, without mention of fluctuations
CPT/HCPCS: 36415; 80053; 80061

== ENCOUNTER → 2024-10-06 17:09 | Outpatient (CLI) | payer MEDICARE, OTHER, SELFPAY ==
[2022-02-18 13:14] VITALS: BMI 31.8
--- NOTE | 2024-10-06 17:12 | DI.MRI.S_ITS ---
PROCEDURE: MR SHOULDER RT WO CON INDICATIONS: ROTATOR CUFF TEAR TECHNIQUE: Noncontrast oblique coronal T2 fast spin echo with fat saturation, oblique sagittal T1 spin echo and T2 fast spin echo with fat saturation, axial T1 spin echo and T2 fast spin echo with fat saturation through the shoulder. COMPARISON: [facility] [place], CR, XR SHOULDER 2+ VIEWS RIGHT, 09/30/2024, 11:16. [facility], MR, MR SHOULDER RT WO CON, 08/13/2020, 11:07. FINDINGS: Image quality: Excellent. Bones: Along with heterogenous marrow signal along the subcortical regions of the proximal humerus (which can be seen with osteopenia), there are multiple marrow replacing lesions scattered throughout the scapula, distal clavicle, acromion, proximal humeral diaphysis, as well as the visualized right lateral ribs. For reference, there is a 2.4 x 3.2 cm glenoid lesion with involvement of the coracoid process base (/), as well as a round 1 cm lesion at the proximal-lateral humeral diaphysis (10/14; 7/). There is no acute fracture or dislocation. Acromioclavicular joint: Mild osteoarthritis. There is a type 2 acromion with a small subacromial spur (/16). Glenohumeral joint: Mild osteoarthritis. There is a trace joint effusion. There is posterior decentering and superior subluxation of the humeral head relative to the glenoid (5/13; 7/13). Labrum: There is circumferential blunting and degeneration of the labrum. Cartilage: Areas of deep partial thickness chondral loss are present throughout the articular surface of the humeral head (7/13). Subacromial-subdeltoid bursa: There is a small amount of fluid in the subacromial-subdeltoid bursa. Rotator cuff: There has been prior rotator cuff repair given the susceptibility artifact at the greater tuberosity. Superimposed on moderate tendinosis, there is a full-thickness tear of the anterior bundle of the supraspinatus tendon with proximal retraction to the level of the humeral apex (7/10). Superimposed on moderate tendinosis, there are multifocal partial width, partial-thickness, articular sided tears of the infraspinatus at the footprint with critical zone and myotendinous delamination (/9-19). There is mild subscapularis tendinosis. The teres minor tendon is intact. Long head of biceps tendon: The intra-articular portion of the long head of the biceps tendon is not identified. The extra-articular portion is thinned and attenuated in the bicipital groove (7/5). Musculature: Superimposed on severe muscle atrophy, there is extraosseous extension of the glenoid marrow replacing lesion into the suprascapular notch (9/23; 8/23). There are no visible fat planes between the extraosseous extension and the adjacent supraspinatus muscle. There is mild atrophy of the cranial subscapularis and caudal infraspinatus muscle fibers (8/25). The teres minor muscle bulk is intact. Inferior glenohumeral ligaments/Axillary pouch: The axillary pouch is normal in thickness and signal. Coracoclavicular and coracoacromial ligaments: The coracoclavicular and coracoacromial ligaments are normal. Other: No right axillary lymphadenopathy. IMPRESSION: 1. Multiple osseous marrow replacing lesions. The differential diagnosis would include a plasma cell dyscrasia such as multiple myeloma, lymphoma, and metastatic disease of unknown primary. Please correlate with SPEP/UPEP and CBC for initial investigation, with additional possible CT chest abdomen pelvis with contrast imaging follow-up. 2. 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 3. Multifocal partial width, partial-thickness, articular sided infraspinatus footprint tears with proximal delamination, superimposed on moderate tendinosis, and mild muscle atrophy. 4. Mild subscapularis tendinosis with mild muscle atrophy. 5. Likely intra-articular tearing of the long head of the biceps tendon with a thinned attenuated appearance of the extra-articular portion. 6. Mild acromioclavicular osteoarthritis. 7. Mild glenohumeral osteoarthritis. Dictated by: Eddie Rueda M.D. on 10/08/2024 at 12:07 Approved by: Eddie Rueda M.D. on 10/08/2024 at 13:00
== END ==
LOC: MRI 17:11
PROVIDERS: Family Provider Internal Medicine; PCP Internal Medicine; Referring Provider Internal Medicine; Visit Provider Physician Assistant
DX: M75.121 Complete rotator cuff tear or rupture of right shoulder, not specified as traumatic (principal); M19.011 Primary osteoarthritis, right shoulder; M62.511 Muscle wasting and atrophy, not elsewhere classified, right shoulder
CPT/HCPCS: 73221

== ENCOUNTER → 2024-10-31 09:49 | Outpatient (CLI) | payer MEDICARE, OTHER, SELFPAY ==
[2022-02-18 13:14] VITALS: BMI 31.8
[2024-10-31 10:36] LABS: Alanine Aminotransferase 16 IU/L (<50); Albumin 3.7 g/dL (3.5-5.0); Albumin Globulin Ratio 1.9 (1.0-2.8); Alkaline Phosphatase 82 U/L (38-126); Aspartate Aminotransferase 24 IU/L (17-59); Bilirubin Total 0.6 mg/dL (0.2-1.3); Blood Urea Nitrogen 17 mg/dL (9-20); Calcium 9.6 mg/dL (8.4-10.2); Carbon Dioxide 27 mmol/L (22-32); Chloride 106 mmol/L (98-107); Cholesterol 167 mg/dL (140-199); Estimated Glomerular Filt Rate > 60 mL/min (>60); Glucose 103 mg/dL (70-99); HDL Cholesterol 45 mg/dL (40-60); HEMOLYSIS < 15 (0-50); LDL Cholesterol Calculated 104 mg/dL (<100); Potassium 3.8 mmol/L (3.4-5.1); Sodium 140 mmol/L (137-145); Total Protein 5.7 g/dL (6.3-8.2); Triglycerides 88 mg/dL (35-150)
== END ==
PROVIDERS: Family Provider Internal Medicine; PCP Internal Medicine; Referring Provider Internal Medicine; Visit Provider Internal Medicine
DX: I10 Essential (primary) hypertension (principal); E78.5 Hyperlipidemia, unspecified; G20.A1 Parkinson's disease without dyskinesia, without mention of fluctuations
CPT/HCPCS: 36415; 80053; 80061

== ENCOUNTER → 2024-11-02 15:50 | Outpatient (CLI) | payer MEDICARE, OTHER, SELFPAY ==
[2022-02-18 13:14] VITALS: BMI 31.8
[2024-11-02 17:17] LABS: Add Manual Diff / Slide Review NO; Basophils Absolute Auto 0 /uL (0-100); Basophils Percent Auto 0.5 % (0-2); Eosinophils Absolute Auto 500 /uL (0-450); Eosinophils Percent Auto 8.7 % (2-4); Hematocrit 35.8 % (41-53); Hemoglobin 12.1 g/dL (13.5-17.5); Lymphocytes Absolute Auto 1700 /uL (1100-4500); Lymphocytes Percent Auto 32.3 % (25-40); Mean Corpuscular HGB Conc 33.7 % (30-36); Monocytes Absolute Auto 600 /uL (0-900); Monocytes Percent Auto 11.7 % (3-14); Neutrophils Absolute Auto 2500 /uL (1500-7000); Neutrophils Percent Auto 46.8 % (50-75); Platelet Count 236 X10^3/uL (150-400); Red Blood Cell Count 3.77 X10^6/uL (4.5-5.9); Red Cell Distribution Width 13.4 % (11.6-14.8); White Blood Cell Count 5.4 X10^3/uL (4.5-11.0)
[2024-11-02 17:39] LABS: Erythrocyte Sedimentation Rate 35 MM/HR (0-15)
[2024-11-02 17:50] LABS: C-Reactive Protein Quant 1.7 mg/dL (<1.0)
== END ==
PROVIDERS: PCP Internal Medicine; Referring Provider Internal Medicine; Visit Provider Internal Medicine
DX: C90.00 Multiple myeloma not having achieved remission (principal)
CPT/HCPCS: 36415; 84155; 84156; 84165; 84166; 85025; 85651; 86140

== ENCOUNTER → 2024-11-05 08:29 | Outpatient (CLI) | payer MEDICARE, OTHER, SELFPAY ==
[2022-02-18 13:14] VITALS: BMI 31.8
--- NOTE | 2024-11-05 08:33 | DI.NM.S_ITS ---
PROCEDURE: NM BONE SCAN WHOLE BODY RADIOPHARMACEUTICAL: 22 mCi Tc-99m MDP IV. INDICATIONS: rib pain, abnl mri shoulder TECHNIQUE: Delayed whole-body scintigrams were obtained approximately 3-4 hours after intravenous injection of radiotracer. Anterior and posterior views were acquired from vertex to feet. Additional left and right oblique views of the chest were obtained. COMPARISON: None. FINDINGS: Multifocal uptake in bilateral ribs, right greater than left, most prominent in the 6th through 8th ribs. Additional uptake L1 and L2. Degenerative uptake of the shoulders. Additional abnormal radiotracer uptake in the right glenoid. IMPRESSION: Multifocal uptake of the ribs, right shoulder, and the L1 and L2 vertebral bodies. Findings raise a concern for multiple myeloma, given history. Dictated by: Bro Oliver M.D. on 11/05/2024 at 16:42 Approved by: Bro Oliver M.D. on 11/05/2024 at 16:44
== END ==
PROVIDERS: PCP Internal Medicine; Referring Provider Internal Medicine; Visit Provider Internal Medicine
DX: C90.00 Multiple myeloma not having achieved remission (principal)
CPT/HCPCS: 78306; A9503